=== PATIENT | female | born 1950 | race Caucasian/White ===

== ENCOUNTER 2018-02-28 17:23 | Inpatient (IN) ==
[2018-02-28] MEDS ORDERED: 0.9 % Sodium Chloride 500 ML IVC ONE (18:44)
--- NOTE | 2018-02-28 18:46 | Emergency Department Note ---
Disposition Clinical Impression: Small bowel obstruction, Ventral hernia with bowel obstruction Disposition: Admitted As Inpatient Condition: Fair Referrals: Jad Lang MD [Primary Care Provider] - Forms: ED Satisfaction Letter, Work/School Release Time of Disposition: 19:11 General Adult HPI - General Chief complaint: ED Abdominal Pain Stated complaint: bowel blockage Time Seen by Provider: 02/28/18 18:32 - History of Present Illness Pain Scale: 4 - Related Data Home Medications Medication Instructions Recorded Confirmed Albuterol Sulfate [Albuterol 2 puff IH Q4HR 11/05/15 11/05/15 Inhaler] Aspirin 325 mg PO DAILY 11/05/15 11/05/15 Diclofenac Sodium [Voltaren] 75 mg PO BID 11/05/15 11/05/15 Ferrous Sulfate [Iron Supplement] 325 mg PO DAILY 11/05/15 11/05/15 Lisinopril [Zestril] 5 mg PO DAILY PRN 11/05/15 11/05/15 Meclizine HCl [Verticalm] 25 mg PO BID PRN 11/05/15 11/05/15 Previous Rx's Medication Instructions Recorded Dicyclomine [Bentyl] 10 mg PO QID PRN #20 capsule 11/23/17 Ondansetron HCl [Zofran] 4 mg PO Q6H PRN #10 tablet 11/23/17 Ondansetron ODT [Zofran ODT] 4 mg PO Q6H PRN #6 tab.rapdis 02/28/18 Allergies Allergy/AdvReac Type Severity Reaction Status Date / Time ciprofloxacin [From Cipro] Allergy Muscle Pain Verified 11/05/15 14:55 Sulfa (Sulfonamide Allergy Vomiting Verified 05/16/15 11:45 Antibiotics) Past Medical History - Past Medical History Medical history: Reports: arthritis, asthma, DVT, glaucoma, hypertension Psychiatric history: Reports: no psych history SENIOR PIPING DESIGNER history: Reports: no SENIOR PIPING DESIGNER history - Social History Smoking Status: Never smoker Smokeless Tobacco Status: No Alcohol use: Reports: none Drug use: Reports: none Course Vital Signs Temperature 98.1 F 02/28/18 17:25 Pulse Rate 104 02/28/18 17:25 Respiratory Rate 18 02/28/18 17:25 Blood Pressure 133/83 02/28/18 17:25 O2 Sat by Pulse Oximetry 96 02/28/18 17:25 Temperature 98.1 F 02/28/18 19:03 Pulse Rate 104 02/28/18 19:03 Respiratory Rate 18 02/28/18 19:03 Blood Pressure 133/83 02/28/18 19:03 O2 Sat by Pulse Oximetry 96 02/28/18 19:03 Oxygen Delivery Oxygen Delivery Room Air Medical Decision Making - Lab Data Result diagrams: 02/28/18 18:51 Lab Results 02/28/18 Range/Units 18:51 WBC 13.3 H (4.3-11.1) K/mcL RBC 5.22 H (3.82-4.97) M/mcL Hgb 13.8 (11.5-15.4) g/dL Hct 43.2 (35.3-44.9) % MCV 82.8 L (83.0-100.0) fL MCH 26.4 L (28.0-33.3) pg MCHC 31.9 (31.6-35.5) g/dL RDW 13.8 (11.5-14.5) % Plt Count 279 (140-400) K/mcL MPV 10.3 (9.4-12.4) fL Immature Gran % 0.2 (0-4) % Seg Neutrophils % 81.6 % Lymphocytes % 11.2 % Monocytes % 6.9 % Eosinophils % 0.0 % Basophils % 0.1 % Neutrophils # 10.9 H (1.6-8.9) K/mcL Lymphocytes # 1.5 (0.6-4.6) K/mcL Monocytes # 0.9 (0.0-1.3) K/mcL Eosinophils # 0.0 (0.0-0.6) K/mcL Basophils # 0.0 (0.0-0.2) K/mcL Attestation Statement - Attestation Attestation: I examined this patient and my medical decision-making was reviewed with the Resident Physician. I agree with the documented findings, disposition and treatment plan as described except to the extent set forth below. Patient presents to the ED with a chief complaint of a bowel obstruction. Patient was seen and [facility] this morning and wanted to go home. She had 2 incarcerated hernias a small bowel obstruction. Patient has a history of multiple abdominal surgeries. On examination she has a midline scar of her abdomen. Several areas with straw-colored serous drainage. She has a soft hernia anteriorly and a palpable hernia inferiorly that is firm and nonreducible. Plan. Patient was discussed with Dr. Boswell who will admit the patient. We will recheck some labs and place an NG tube. Patient accepted. Signed out to ammunition assembly laborer pending her transfer to the floor.
[2018-02-28 19:01] LABS: Basophils % 0.1 %; Hematocrit 43.2 % (35.3-44.9); Hemoglobin 13.8 g/dL (11.5-15.4); Immature Granulocytes % 0.2 % (0-4); Lymphocytes # 1.5 K/mcL (0.6-4.6); Lymphocytes % 11.2 %; Mean Corpuscular HGB Conc 31.9 g/dL (31.6-35.5); Mean Corpuscular Hemoglobin 26.4 pg (28.0-33.3); Mean Corpuscular Volume 82.8 fL (83.0-100.0); Mean Platelet Volume 10.3 fL (9.4-12.4); Monocytes # 0.9 K/mcL (0.0-1.3); Monocytes % 6.9 %; Neutrophils # 10.9 K/mcL (1.6-8.9); Platelet Count 279 K/mcL (140-400); Red Blood Count 5.22 M/mcL (3.82-4.97); Red Cell Distribution Width 13.8 % (11.5-14.5); Segmented Neutrophils % 81.6 %
--- NOTE | 2018-02-28 19:08 | Emergency Department Note ---
Disposition Clinical Impression: Small bowel obstruction Disposition: Admitted As Inpatient Condition: Fair Referrals: Jad Lang MD [Primary Care Provider] - Forms: ED Satisfaction Letter, Work/School Release General Adult HPI - General Chief complaint: ED Abdominal Pain Stated complaint: bowel blockage Time Seen by Provider: 02/28/18 18:32 Source: patient, family Mode of arrival: ambulatory Limitations: no limitations Nursing Notes Reviewed: Yes Vital Signs Reviewed: Yes - History of Present Illness HPI Narrative: 67-year-old female presenting with small bowel obstruction. Patient states she was seen at an outside facility today and diagnosis small bowel obstruction. They suggested she come to our emergency department for admission and further evaluation but patient went home to rest instead. Patient still vomiting with last episode of nonbloody nonbilious emesis approximately an hour and a half ago. Patient states she has had multiple abdominal hernia repairs from Dr. Salgado and Dr. Montes. Patient denies any fevers at home but does disclose abdominal pain, nausea, vomiting. Pain Scale: 4 - Related Data Home Medications Medication Instructions Recorded Confirmed Albuterol Sulfate [Albuterol 2 puff IH Q4HR 11/05/15 11/05/15 Inhaler] Aspirin 325 mg PO DAILY 11/05/15 11/05/15 Diclofenac Sodium [Voltaren] 75 mg PO BID 11/05/15 11/05/15 Ferrous Sulfate [Iron Supplement] 325 mg PO DAILY 11/05/15 11/05/15 Lisinopril [Zestril] 5 mg PO DAILY PRN 11/05/15 11/05/15 Meclizine HCl [Verticalm] 25 mg PO BID PRN 11/05/15 11/05/15 Previous Rx's Medication Instructions Recorded Dicyclomine [Bentyl] 10 mg PO QID PRN #20 capsule 11/23/17 Ondansetron HCl [Zofran] 4 mg PO Q6H PRN #10 tablet 11/23/17 Ondansetron ODT [Zofran ODT] 4 mg PO Q6H PRN #6 tab.rapdis 02/28/18 Allergies Allergy/AdvReac Type Severity Reaction Status Date / Time ciprofloxacin [From Cipro] Allergy Muscle Pain Verified 11/05/15 14:55 Sulfa (Sulfonamide Allergy Vomiting Verified 05/16/15 11:45 Antibiotics) All systems ED: reviewed and negative except as stated. Constitutional: Denies: fever, chills Eyes: Reports: as per HPI ENT ED: Reports: as per HPI Cardiovascular: Denies: chest pain, palpitations Respiratory: Denies: cough, dyspnea, wheezes Gastrointestinal: Reports: abdominal pain, nausea, vomiting Genitourinary: Reports: as per HPI Musculoskeletal: Reports: as per HPI Integumentary: Reports: as per HPI Neurological: Denies: weakness, numbness, paresthesias Psychiatric: Reports: as per HPI Endocrine: Reports: as per HPI Hematological/Lymphatic: Reports: as per HPI Allergic/Immunologic: Reports: as per HPI Past Medical History - Past Medical History Attestation: Yes The following information was validated with the patient. Medical history: Reports: arthritis, asthma, DVT, glaucoma, hypertension Psychiatric history: Reports: no psych history PARKING METER COLLECTOR history: Reports: no PARKING METER COLLECTOR history - Social History Smoking Status: Never smoker Smokeless Tobacco Status: No Alcohol use: Reports: none Drug use: Reports: none Physical Exam - General Limitations: no limitations General appearance: alert, in no apparent distress - Head Head exam: atraumatic, normocephalic, normal inspection - Eye Eye exam: Present: normal appearance. Absent: scleral icterus, conjunctival injection - ENT ENT exam: mucous membranes dry - Neck Neck exam: Present: normal inspection, full ROM. Absent: tenderness, meningismus - Chest Chest inspection: Present: normal inspection, symmetric chest wall rise. Absent : tenderness, rash - Respiratory Respiratory exam: Present: normal lung sounds bilaterally. Absent: respiratory distress, wheezes - Cardiovascular Cardiovascular exam: Present: normal rhythm, tachycardia, normal heart sounds - Abdominal Exam Abdominal exam: Present: tenderness, hernia (Ventral hernia noted that is able to be reduced. Midline vertical scar with serous drainage from the base. Large , nonreducible, hard hernia noted in the suprapubic region.) Abdominal tenderness: Present: diffuse, severe - Extremities Exam Extremities exam: Present: normal inspection, full ROM - Neurological Exam Neurological exam: Present: alert, oriented X3 - Psychiatric Psychiatric exam: Present: normal affect, normal mood - Skin Skin exam: Present: warm, intact Course Course Narrative: 67-year-old female presenting with hernia with strangulation. Patient was seen outside facility and left. CT there showed the following 1. Findings are consistent with an acute distal small bowel obstruction secondary to incarcerated lower ventral hernia along the anterior pelvic wall which contains loops of mid and distal small bowel and a small bowel feces sign just proximal to the hernia sac. There is no evidence of pneumatosis, perforation, or free air. 2. Second additional ventral abdominal hernia just right of midline contains loops of small bowel and colon, though no evidence of incarceration or associated obstruction. Patient had mild leukocytosis but otherwise labs benign. Patient arrived and states she is still having vomiting. Last episode of vomiting was proximally an hour and a half ago. On exam patient does have large, non-reducible, hard hernia noted above the suprapubic region. I spoke with the surgeon on-call Dr. Huff who agrees to accept the patient to his service. He would like us to place an NG tube and provide the patient with fluid hydration. I spoke with the patient who is currently refusing the NG tube. She remains alert and oriented 3 in the room. Hemodynamically stable. We will try to reassure the need for the NG tube and plan to admit the patient at this time. Vital Signs Temperature 98.1 F 02/28/18 17:25 Pulse Rate 104 02/28/18 17:25 Respiratory Rate 18 02/28/18 17:25 Blood Pressure 133/83 02/28/18 17:25 O2 Sat by Pulse Oximetry 96 02/28/18 17:25 Temperature 98.1 F 02/28/18 19:03 Pulse Rate 104 02/28/18 19:03 Respiratory Rate 18 02/28/18 19:03 Blood Pressure 133/83 02/28/18 19:03 O2 Sat by Pulse Oximetry 96 02/28/18 19:03 Oxygen Delivery Oxygen Delivery Room Air Medical Decision Making - Lab Data Result diagrams: 02/28/18 18:51 Lab Results 02/28/18 Range/Units 18:51 WBC 13.3 H (4.3-11.1) K/mcL RBC 5.22 H (3.82-4.97) M/mcL Hgb 13.8 (11.5-15.4) g/dL Hct 43.2 (35.3-44.9) % MCV 82.8 L (83.0-100.0) fL MCH 26.4 L (28.0-33.3) pg MCHC 31.9 (31.6-35.5) g/dL RDW 13.8 (11.5-14.5) % Plt Count 279 (140-400) K/mcL MPV 10.3 (9.4-12.4) fL Immature Gran % 0.2 (0-4) % Seg Neutrophils % 81.6 % Lymphocytes % 11.2 % Monocytes % 6.9 % Eosinophils % 0.0 % Basophils % 0.1 % Neutrophils # 10.9 H (1.6-8.9) K/mcL Lymphocytes # 1.5 (0.6-4.6) K/mcL Monocytes # 0.9 (0.0-1.3) K/mcL Eosinophils # 0.0 (0.0-0.6) K/mcL Basophils # 0.0 (0.0-0.2) K/mcL
[2018-02-28 19:22] LABS: BUN/Creatinine Ratio 30 (6-26); Blood Urea Nitrogen 21 mg/dL (8-23); Calcium 9.6 mg/dL (8.6-10.3); Carbon Dioxide 26 mEq/L (23-29); Chloride 105 mEq/L (98-107); Glucose 124 mg/dL (70-105); Osmolality,Calculated 290 (280-300); Potassium 3.9 mEq/L (3.5-5.1); Sodium 138 mEq/L (136-145); eGFR For Non-African Americans > 60 (> 60)
[2018-02-28] MEDS: 0.9 % Sodium Chloride 1,000 ML IVC SCH (20:10)
[2018-02-28] MEDS ORDERED: *HR* Metoprolol 5 MG/5 ML VIAL IVP PRN (20:51)
[2018-02-28] MEDS ORDERED: OXYCODONE Oral CONC 10 MG/0.5 ML ORAL.SYG SL PRN (21:21)
[2018-02-28] MEDS ORDERED: OXYCODONE Oral CONC 10 MG/0.5 ML ORAL.SYG SL SCH (21:30)
[2018-02-28] MEDS: D5% in 0.45% NACL w KCl 20 MEQ/1,000 ML MLS IVC SCH (22:11)
[2018-02-28] MEDS: Ondansetron 4 MG/2 ML VIAL IVP PRN (22:42)
[2018-03-01] MEDS: Ondansetron 4 MG/2 ML VIAL IVP PRN (05:32)
[2018-03-01] MEDS: D5% in 0.45% NACL w KCl 20 MEQ/1,000 ML MLS IVC SCH (05:32)
[2018-03-01 06:36] LABS: Basophils % 0.1 %; Hematocrit 39.5 % (35.3-44.9); Hemoglobin 12.4 g/dL (11.5-15.4); Immature Granulocytes % 0.3 % (0-4); Lymphocytes # 1.3 K/mcL (0.6-4.6); Mean Corpuscular HGB Conc 31.4 g/dL (31.6-35.5); Mean Corpuscular Hemoglobin 26.2 pg (28.0-33.3); Mean Corpuscular Volume 83.5 fL (83.0-100.0); Mean Platelet Volume 10.3 fL (9.4-12.4); Monocytes # 0.7 K/mcL (0.0-1.3); Monocytes % 7.4 %; Neutrophils # 7.9 K/mcL (1.6-8.9); Platelet Count 252 K/mcL (140-400); Red Blood Count 4.73 M/mcL (3.82-4.97); Red Cell Distribution Width 13.8 % (11.5-14.5); Segmented Neutrophils % 79.2 %
[2018-03-01 06:57] LABS: BUN/Creatinine Ratio 31 (6-26); Blood Urea Nitrogen 19 mg/dL (8-23); Calcium 8.7 mg/dL (8.6-10.3); Carbon Dioxide 27 mEq/L (23-29); Chloride 106 mEq/L (98-107); Glucose 142 mg/dL (70-105); Osmolality,Calculated 289 (280-300); Potassium 4.1 mEq/L (3.5-5.1); Sodium 137 mEq/L (136-145); eGFR For Non-African Americans > 60 (> 60)
[2018-03-01] MEDS ORDERED: Naloxone 0.4 MG/ML INJ IVP PRN (08:22)
--- NOTE | 2018-03-01 08:22 | General Surg History&Physical ---
<Lisbet Richardson - Last Filed: 03/01/18 14:10> Date of Encounter: 03/01/18 Time of Encounter: 08:22 Assessment and Plan (1) Ventral hernia with bowel obstruction Current Visit: Yes Status: Acute The assessment and plan as outlined above was discussed with the patient and/or family members who expressed understanding and agreement. All questions were answered. -Patient currently refusing NG tube placement - npo - start zosyn Anticipate she will need surgical intervention for removal of mesh & reconstruction with debridement of chronic wound and possible wound vac placement. (2) Nonhealing surgical wound Current Visit: Yes Status: Chronic see above Qualifiers: Encounter type: initial encounter Qualified Code(s): T81.89XA - Other complications of procedures, not elsewhere classified, initial encounter (3) Atrial fibrillation, new onset Current Visit: Yes Status: Suspected unclear out patient diagnosis of atrial fibrillation in the past but strongly suspect based on exam and symptoms. Risks of anti coag may outweigh benefits given bleeding history. - stat EKG was delayed- showed sinus rhythm - cardiac monitoring - consider another EKG to confirm when tele indicated - consult Hospitalist service for this and multiple poorly controlled or undiagnosed chronic medical conditions as listed below. (4) Hyperglycemia Current Visit: Yes Status: Acute Random glucose of 142 and 124 with non-healing ulcer- concern from undiagnosed DM - H A1c (5) Hypertension Current Visit: Yes Status: Chronic Unknown control at home and non compliant with lisinopril - continue IV metropolol prn SBP over 160 Qualifiers: Hypertension type: essential hypertension Qualified Code(s): I10 - Essential (primary) hypertension (6) Asthma Current Visit: Yes Status: Chronic Well controlled at home - albuterol treatment PRN Qualifiers: Asthma severity: mild Asthma persistence: intermittent Asthma complication type: uncomplicated Qualified Code(s): J45.20 - Mild intermittent asthma, uncomplicated (7) History of DVT (deep vein thrombosis) Current Visit: Yes Status: Acute Distant history of DVT with bleeding when anti coagulated - SCDs as DVT prophylaxis (8) Vertigo Current Visit: Yes Status: Chronic Episodic vertigo, previously diagnosied but unknown by patient - 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 Aguayo is a 67 year old female hx HTN presented to [facility] ED for 2 days of vomiting and epigastric abdominal pain. Describes achy pain first triggered by eating pizza and has not been able to tolerate food for a day. Also burning pain with excessive burping of esteban taste. Several episodes of vomiting once with brown coloring and black flakes. Her last bowel movement was 2 days ago and normal coloring with out pain. She admits to chills, sweats, and fatigue. IN [facility] ED, abdominal CT showed SBO secondary to incarcerated lower ventral hernia. She refused transfer but later presented to [facility] ER after increased bilious vomiting that improved with zofran- last vomited noon on Friday. . Dr Huff was paged late on 02-28 and accepted admission. She has history of ventral hernia after hysterectomy leading several abdominal surgeries in attempt to repair the first completed by Dr Verduzco. Her last surgery around [address] Montes she refused mesh removal. Thus resulting in non healing abdominal wound that constantly seeps clear fluid but occasional blisters then bleeds. She once followed with wound clinic but stopped. She was previously told by a doctor she had irregular heartbeat but later told that there was nothing wrong and didn't need medications. Sje periodically has palpations, weakness and lightheaded - patient is poor historian regarding distant events and did not provide more detail. She has previous DVT after surgery but when anti-coagulated experienced increased bleeding and required transfusion. At some point she was seen in another ER for vertigo told it was "in her ears" and given mecilizine but no formal diagnosis recalled. Never smoker denies EtOH or illicit drug use. She is noncompliant with treatment with lisinopril for HTN but takes a 81 mg asa daily. Past Med Surg Social Fam HX - Past Medical History Medical history: arthritis, asthma, DVT, glaucoma, hypertension Psychiatric history: no psych history - Past Surgical History Surgical History: hysterectomy Additional surgical history: DEBRIDEMENT OF ABDOMINAL WOUND - Social History Smoking Status: Never smoker Smokeless Tobacco Status: No Alcohol use: none Drug use: none - Family History Daughter History Unknown: Yes Hx Family Medical Disorders: Yes (IBS) Medications and Allergies Aspirin 325 mg PO DAILY 11/05/15 [History] 3 Allergy/AdvReac Type Severity Reaction Status Date / Time ciprofloxacin [From Cipro] Allergy Muscle Pain Verified 11/05/15 14:55 Sulfa (Sulfonamide Allergy Vomiting Verified 05/16/15 11:45 Antibiotics) Review of Systems All systems PM: The remainder of the systems were reviewed and are negative - Constitutional chills, fatigue, malaise, weakness - EENT Nose, mouth and throat: dizziness, nasal congestion, nasal discharge, vertigo - Cardiovascular lightheadedness, palpitations, no chest pain, no edema, no syncope - Respiratory cough, dyspnea on exertion - Gastrointestinal abdominal pain, nausea, vomiting, no constipation, no diarrhea, no melena - Genitourinary Genitourinary: urinary incontinence, no dysuria, no urinary frequency - Musculoskeletal arthralgias, back pain, muscle weakness - Neurological disequilibrium, dizziness, memory loss, vertigo General Surgery Exam Initial Vital Signs Temp Pulse Resp BP Pulse Ox 98.1 F 104 18 133/83 96 02/28/18 17:25 02/28/18 17:25 02/28/18 17:25 02/28/18 17:25 02/28/18 17:25 - General physical appearance moderate distress, moderate pain, obese - Eyes normal ocular movement - Respiratory normal expansion, normal respiratory effort crackles: bilateral - Cardiovascular Cardiovascular exam: Present: tachycardia, irregular rhythm - Abdomen Abdomen general surgery: Present: bowel sounds present, soft, non tender, surgical scars, wound. Absent: tender, rebound Hernia: Present: reducible, epigastric - Incision Incision: Present: draining, red, erythema, approximated - Integumentary Integumentary general surgery: Present: warm and dry, no abnormal pigmentation. Absent: diaphoresis - Neurologic Present: normal coordination, normal sensation - Musculoskeletal Present: normal posture. Absent: normal gait - Psychiatric Psychiatric general surgery: Present: A&Ox3, speech is normal (poor historian espically of distant events who struggles to make descisions). Absent: memory intact, aggessive, tearful Results - Labs 03/01/18 06:12 03/01/18 06:12 Abnormal lab results MCH 26.2 pg (28.0-33.3) L 03/01/18 06:12 MCHC 31.4 g/dL (31.6-35.5) L 03/01/18 06:12 BUN/Creatinine Ratio 31 (6-26) H 03/01/18 06:12 Glucose 142 mg/dL (70-105) H 03/01/18 06:12 Diabetes panel 03/01/18 Range/Units 06:12 Sodium 137 (136-145) mEq/L Potassium 4.1 (3.5-5.1) mEq/L Chloride 106 (98-107) mEq/L Carbon Dioxide 27 (23-29) mEq/L BUN 19 (8-23) mg/dL Creatinine 0.62 (0.60-1.20) mg/dL Glucose 142 H (70-105) mg/dL Calcium 8.7 (8.6-10.3) mg/dL Calcium panel 03/01/18 Range/Units 06:12 Calcium 8.7 (8.6-10.3) mg/dL Pituitary panel 03/01/18 Range/Units 06:12 Sodium 137 (136-145) mEq/L Potassium 4.1 (3.5-5.1) mEq/L Chloride 106 (98-107) mEq/L Carbon Dioxide 27 (23-29) mEq/L BUN 19 (8-23) mg/dL Creatinine 0.62 (0.60-1.20) mg/dL Glucose 142 H (70-105) mg/dL Calcium 8.7 (8.6-10.3) mg/dL Adrenal panel 03/01/18 Range/Units 06:12 Sodium 137 (136-145) mEq/L Potassium 4.1 (3.5-5.1) mEq/L Chloride 106 (98-107) mEq/L Carbon Dioxide 27 (23-29) mEq/L BUN 19 (8-23) mg/dL Creatinine 0.62 (0.60-1.20) mg/dL Glucose 142 H (70-105) mg/dL Calcium 8.7 (8.6-10.3) mg/dL All other labs normal. <Jaime Huff - Last Filed: 03/01/18 17:58> Date of Encounter: 03/01/18 History of Present Illness HPI: Ms. Aguayo is a 67 year old female Review of Systems All systems PM: The remainder of the systems were reviewed and are negative General Surgery Exam Initial Vital Signs Temp Pulse Resp BP Pulse Ox 98.1 F 104 18 133/83 96 02/28/18 17:25 02/28/18 17:25 02/28/18 17:25 02/28/18 17:25 02/28/18 17:25 Results - Labs 03/01/18 06:12 03/01/18 06:12 Abnormal lab results MCH 26.2 pg (28.0-33.3) L 03/01/18 06:12 MCHC 31.4 g/dL (31.6-35.5) L 03/01/18 06:12 BUN/Creatinine Ratio 31 (6-26) H 03/01/18 06:12 Glucose 142 mg/dL (70-105) H 03/01/18 06:12 Diabetes panel 03/01/18 Range/Units 06:12 Sodium 137 (136-145) mEq/L Potassium 4.1 (3.5-5.1) mEq/L Chloride 106 (98-107) mEq/L Carbon Dioxide 27 (23-29) mEq/L BUN 19 (8-23) mg/dL Creatinine 0.62 (0.60-1.20) mg/dL Glucose 142 H (70-105) mg/dL Calcium 8.7 (8.6-10.3) mg/dL Thyroid panel 03/01/18 Range/Units 06:12 TSH 1.952 (0.340-5.600) mcIU/mL Calcium panel 03/01/18 Range/Units 06:12 Calcium 8.7 (8.6-10.3) mg/dL Pituitary panel 03/01/18 Range/Units 06:12 Sodium 137 (136-145) mEq/L Potassium 4.1 (3.5-5.1) mEq/L Chloride 106 (98-107) mEq/L Carbon Dioxide 27 (23-29) mEq/L BUN 19 (8-23) mg/dL Creatinine 0.62 (0.60-1.20) mg/dL Glucose 142 H (70-105) mg/dL Calcium 8.7 (8.6-10.3) mg/dL TSH 1.952 (0.340-5.600) mcIU/mL Adrenal panel 03/01/18 Range/Units 06:12 Sodium 137 (136-145) mEq/L Potassium 4.1 (3.5-5.1) mEq/L Chloride 106 (98-107) mEq/L Carbon Dioxide 27 (23-29) mEq/L BUN 19 (8-23) mg/dL Creatinine 0.62 (0.60-1.20) mg/dL Glucose 142 H (70-105) mg/dL Calcium 8.7 (8.6-10.3) mg/dL All other labs normal. - Attending Attestation I examined this patient and my medical decision-making was reviewed with the Resident Physician. I agree with the documented findings, disposition and treatment plan as described except to the extent set forth below. The patient is seen and evaluated on morning rounds with resident and the medical student. 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 CAT scan demonstrates a complex incisional hernia with at least 2 fascial openings. A transition point is noted in one of the hernia sacs. She has been offered exploratory laparotomy and removal of mesh in the past. I offered exploratory laparotomy and removal of mesh. She would like to wait and see how she does. The lower abdominal midline wound will not heal without mesh removal. I will discuss her case with Dr. Montes and Dr. Verduzco. Jaime Huff MD FACS
[2018-03-01] MEDS ORDERED: Albuterol 2.5 MG/3 ML NEBULIZER IH PRN (08:44)
[2018-03-01 09:11] LABS: INR 1.1; Prothrombin Time 12.1 Seconds (9.4-12.1)
[2018-03-01] MEDS: 0.9 % Sodium Chloride 1,000 ML IVC SCH ×2 (12:24→20:39)
[2018-03-01] MEDS: Piperacillin/Tazobactam 3.375 GM in 0.9 % Sodium Chloride Mini Bag 100 ML IVPB SCH ×2 (12:25→20:40)
--- NOTE | 2018-03-01 15:15 | Internal Medicine Consult Note ---
Date of Encounter: 03/01/18 Time of Encounter: 13:00 - Assessment and plan (1) Sinus tachycardia Current Visit: Yes Status: Acute Assessment and plan: Patient with heart rate of 104 on admission but has been between 75 to 90 since. EKG this morning showed sinus rhythm. Cardiovascular exam also revealed that patient was in regular rate and rhythm Recommendations to continue to monitor patient on telemetry TSH and Echocardiogram ordered which are pending. (2) Vertigo Current Visit: Yes Status: Chronic Assessment and plan: Patient reports a history of intermittent dizziness and has been diagnosed with BPPV. She is managed with meclizine as needed as an outpatient. Patient currently asymptomatic but agree with her taking meclizine as needed (3) Hypertension Current Visit: Yes Status: Chronic Assessment and plan: Patient does report a history of hypertension management but discontinued medication due to side effects. Patient's blood pressure since admission has been within normal limits. No recommendations to start on oral scheduled antihypertensive at this time but to continue to monitor Qualifiers: Hypertension type: essential hypertension Qualified Code(s): I10 - Essential (primary) hypertension (4) History of DVT (deep vein thrombosis) Current Visit: Yes Status: Acute Assessment and plan: Patient reports a history of DVT but appeared to have been provoked by prior surgery years ago. Agree with continuing SCDs for DVT prophylaxis. (5) Asthma Current Visit: Yes Status: Chronic Assessment and plan: Patient not in exacerbation; albuterol as needed Qualifiers: Asthma severity: mild Asthma persistence: intermittent Asthma complication type: uncomplicated Qualified Code(s): J45.20 - Mild intermittent asthma, uncomplicated (6) Ventral hernia with bowel obstruction Current Visit: Yes Status: Acute Assessment and plan: Patient presented to the ER on 02/28/18 due to abdominal pain and nausea/vomiting , who was found to have a distal small bowel obstruction secondary to incarcerated lower ventral hernia on imaging. Management per general surgery (7) DVT prophylaxis Current Visit: Yes Status: Acute - Time Spent With Patient Total time spent is greater than 50% in coordination of care (as documented) at patient's floor/unit and/or counseling patient: Internal Medicine - CN: HPI - Data of Consult Consult date: 03/01/18 Requesting Physician: Jaime Huff MD - Consult Narrative Reason for consult: Concerns for atrial fibrillation History of present illness: Patient is a 67-year-old female with past medical history significant for DVT, hypertension, asthma and BPPV who presented to the ER on 02/28/18 due to abdominal pain and nausea/vomiting, who was found to have a distal small bowel obstruction secondary to incarcerated lower ventral hernia on imaging. She was admitted to general surgery service for management. Hospitalist service was consulted due to concerns for possible atrial fibrillation. Patient reports that several years ago she heard the term atrial fibrillation mentioned to her, during hospitalization while being evaluated for a blood clot. She reports that she was on Coumadin for a short time and was discontinued; presuming that a recent surgery prior to DVT was probable cause. Patient also reports of being on aspirin daily. In addition, patient also states that she had been on blood pressure medications in the past for hypertension but discontinued them due to side effects. Furthermore, patient also reports of chronic history of intermittent dizziness and was diagnosed with BPPV and takes meclizine as needed. Past Med Surg Social Fam HX - Past Medical History Medical history: arthritis, asthma, DVT, glaucoma, hypertension Psychiatric history: no psych history - Past Surgical History Surgical History: hysterectomy Additional surgical history: DEBRIDEMENT OF ABDOMINAL WOUND - Social History Smoking Status: Never smoker Smokeless Tobacco Status: No Alcohol use: none Drug use: none - Family History Daughter History Unknown: Yes Hx Family Medical Disorders: Yes (IBS) Internal Medicine - CN: Meds Aspirin 325 mg PO DAILY 11/05/15 [History] 3 Allergy/AdvReac Type Severity Reaction Status Date / Time ciprofloxacin [From Cipro] Allergy Muscle Pain Verified 11/05/15 14:55 Sulfa (Sulfonamide Allergy Vomiting Verified 05/16/15 11:45 Antibiotics) Hospitalist - CN: Exam - Constitutional Vitals: Temp Pulse Resp BP Pulse Ox 97.6 F 84 16 120/75 97 03/01/18 14:41 03/01/18 14:41 03/01/18 14:41 03/01/18 14:41 03/01/18 14:41 General appearance IM: Present: A&O X 3, no acute distress Exam: As above - Head Head exam: Present: normocephalic - Eye Eye exam: Present: normal appearance - ENT ENT exam: Present: mucous membranes moist - Respiratory Respiratory exam: Present: CTAB - Cardiovascular Cardiovascular exam IM: Present: RRR, +S1, +S2. Absent: bradycardia, clicks, diastolic murmur, gallop, irregular rhythm, rubs, systolic murmur, tachycardia - GI/Abdominal GI/Abdominal exam IM: Present: distended, hypoactive bowel sounds, soft - Extremities Exam Extremities exam IM: Absent: pedal edema - Neurological Exam Neurological exam: Present: alert, oriented X3. Absent: altered - Psychiatric Psychiatric exam: Present: normal mood - Skin Skin exam IM: Present: normal color Internal Medicine - CN: Reslt - Labs CBC & Chem 7: 03/01/18 06:12 03/01/18 06:12 Labs: Short CBC 03/01/18 Range/Units 06:12 WBC 10.0 (4.3-11.1) K/mcL Hgb 12.4 (11.5-15.4) g/dL Hct 39.5 (35.3-44.9) % Plt Count 252 (140-400) K/mcL Neutrophils # 7.9 (1.6-8.9) K/mcL BMP 03/01/18 06:12 Sodium 137 Potassium 4.1 Chloride 106 Carbon Dioxide 27 BUN 19 Creatinine 0.62 Glucose 142 H Calcium 8.7 - ABG Interpretation ABG results: PT/INR, D-dimer PT 12.1 Seconds (9.4-12.1) 03/01/18 08:37 Consult Discharge Plan - Plan Referrals: Jad Lang MD [Primary Care Provider] -
[2018-03-01 17:53] LABS: Thyroid Stimulating Hormone 1.952 mcIU/mL (0.340-5.600)
[2018-03-02] MEDS: Piperacillin/Tazobactam 3.375 GM in 0.9 % Sodium Chloride Mini Bag 100 ML IVPB SCH ×3 (05:48→21:44)
[2018-03-02] MEDS: 0.9 % Sodium Chloride 1,000 ML IVC SCH ×3 (05:49→16:22)
[2018-03-02 06:29] LABS: Basophils % 0.3 %; Eosinophils # 0.2 K/mcL (0.0-0.6); Eosinophils % 2.8 %; Hematocrit 37.1 % (35.3-44.9); Hemoglobin 11.4 g/dL (11.5-15.4); Immature Granulocytes % 0.2 % (0-4); Lymphocytes # 1.7 K/mcL (0.6-4.6); Lymphocytes % 29.6 %; Mean Corpuscular HGB Conc 30.7 g/dL (31.6-35.5); Mean Corpuscular Hemoglobin 26.3 pg (28.0-33.3); Mean Corpuscular Volume 85.5 fL (83.0-100.0); Mean Platelet Volume 10.4 fL (9.4-12.4); Monocytes # 0.6 K/mcL (0.0-1.3); Monocytes % 11.1 %; Neutrophils # 3.2 K/mcL (1.6-8.9); Platelet Count 227 K/mcL (140-400); Red Blood Count 4.34 M/mcL (3.82-4.97); Red Cell Distribution Width 13.8 % (11.5-14.5)
[2018-03-02 07:04] LABS: BUN/Creatinine Ratio 18 (6-26); Blood Urea Nitrogen 13 mg/dL (8-23); Calcium 8.4 mg/dL (8.6-10.3); Carbon Dioxide 24 mEq/L (23-29); Chloride 111 mEq/L (98-107); Chol/HDL Ratio 2.9 (0-4.9); Cholesterol 126 mg/dL (< 200); Glucose 84 mg/dL (70-105); HDL Cholesterol 44 mg/dL (40-59); LDL Cholesterol,Calculated 63 mg/dL (0-99); Osmolality,Calculated 293 (280-300); Potassium 3.5 mEq/L (3.5-5.1); Sodium 142 mEq/L (136-145); Triglycerides 95 mg/dL (< 150); eGFR For Non-African Americans > 60 (> 60)
[2018-03-02 08:16] LABS: Estimated Average Glucose 117 mg/dl; Hemoglobin A1C 5.7 %
--- NOTE | 2018-03-02 08:57 | General Surgery Progress Note ---
<Lisbet Richardson - Last Filed: 03/02/18 09:05> Date of Encounter: 03/02/18 Time of Encounter: 08:53 - Assessment and Plan (1) Ventral hernia with bowel obstruction Current Visit: Yes Status: Acute SBO with incarceration of lower ventral hernia - IVF NS 125 - continue NPO - continue zosyn Patient would benefit from NG placement but refused. Dr Huff will discuss case and possible surgical intervention with Dr Montes today as he preformed previous surgery. May need reconstruction after removal of mesh with wound vac. (2) Nonhealing surgical wound Current Visit: Yes Status: Chronic see above - daily wound care Qualifiers: Encounter type: initial encounter Qualified Code(s): T81.89XA - Other complications of procedures, not elsewhere classified, initial encounter (3) Atrial fibrillation, new onset Current Visit: Yes Status: Suspected Again transiently irregular irregular on exam but normal rate - continue tele and attempt to capture on EKG - TSH 1.9 - appreciate hospitalist's recommendations for echo (4) Hyperglycemia Current Visit: Yes Status: Acute A1C 5.7 borderline prediabetic - no intervention at this time but continue to monitor (5) Hypertension Current Visit: Yes Status: Chronic continue Lopressor IV prn SBP > 160 Qualifiers: Hypertension type: essential hypertension Qualified Code(s): I10 - Essential (primary) hypertension (6) History of DVT (deep vein thrombosis) Current Visit: Yes Status: Acute With history of bleeding when anti coagulated - scds and ambulate for prophylaxis Subjective Patient reports: feels better (No vomiting; patient is requesting food but explained that will make nausea worse.), bowel movement, nausea, afebrile Objective Vital Signs - Last 8 Hours Temp Pulse Resp BP Pulse Ox 03/02/18 06:50 98.0 F 75 14 124/68 100 03/02/18 03:07 97.7 F 66 14 144/78 98 Intake and Output 03/01/18 03/02/18 03/02/18 23:59 07:59 15:59 Intake Total 1100 / 1100 1100 / 1100 Output Total 400 / 400 600 / 600 Balance 700 / 700 500 / 500 Intake: IV Fluids 1100 / 1100 1100 / 1100 0.9 % Sodium Chloride 1,000 ML 1000 / 1000 1000 / 1000 @ 125 mls/hr IVC .Q8H KT Rx#: [id number] Zosyn 3.375 GM In 0.9 % Sodium 100 / 100 100 / 100 Chloride (Mini-Bag +) 100 ML @ 25 mls/hr IVPB Q8H [facility] Rx#: [id number] Oral 0 / 0 0 / 0 Output: Urine 400 / 400 600 / 600 Other: Meal NPO DINNER # Bowel Movements 0 0 Weight 89 kg Blood Glucose* 88 89 Patient Weight 03/02/18 23:59 Weight 89 kg - General physical appearance well developed, well nourished, obese - Eyes normal ocular movement - ENT normal pinna, normal nares, normal mucosa, no hearing loss - Respiratory normal expansion, normal respiratory effort, clear to auscultation - Cardiovascular Cardiovascular exam: Present: irregular rhythm Addtional Comments: no pedal edema, no erythema - Abdomen Abdomen: Present: soft (decrease bowel sounds), non tender Hernia: reducible (ventral upper), incarcerated (ventral lower) - Incision Incision: Present: draining, inflamed, intact, erythema, approximated. Absent: swollen, purulent - Integumentary no rash, no growths, no abnormal pigmentation - Neurologic normal coordination, disoriented - Musculoskeletal normal gait, normal posture - Psychiatric oriented to time, oriented to person, oriented to place, speech is normal - Labs 03/02/18 06:00 03/02/18 06:00 Diabetes panel 03/01/18 03/02/18 03/02/18 Range/Units 06:12 06:00 06:00 Sodium 137 142 (136-145) mEq/L Potassium 4.1 3.5 (3.5-5.1) mEq/L Chloride 106 111 H (98-107) mEq/L Carbon Dioxide 27 24 (23-29) mEq/L BUN 19 13 (8-23) mg/dL Creatinine 0.62 0.72 (0.60-1.20) mg/dL Glucose 142 H 84 (70-105) mg/dL Hemoglobin A1c 5.7 H ( - 5.6) % Calcium 8.7 8.4 L (8.6-10.3) mg/dL Triglycerides 95 (< 150) mg/dL HDL Cholesterol 44 (40-59) mg/dL Thyroid panel 03/01/18 Range/Units 06:12 TSH 1.952 (0.340-5.600) mcIU/mL Calcium panel 03/01/18 03/02/18 Range/Units 06:12 06:00 Calcium 8.7 8.4 L (8.6-10.3) mg/dL Pituitary panel 03/01/18 03/02/18 Range/Units 06:12 06:00 Sodium 137 142 (136-145) mEq/L Potassium 4.1 3.5 (3.5-5.1) mEq/L Chloride 106 111 H (98-107) mEq/L Carbon Dioxide 27 24 (23-29) mEq/L BUN 19 13 (8-23) mg/dL Creatinine 0.62 0.72 (0.60-1.20) mg/dL Glucose 142 H 84 (70-105) mg/dL Calcium 8.7 8.4 L (8.6-10.3) mg/dL TSH 1.952 (0.340-5.600) mcIU/mL Adrenal panel 03/01/18 03/02/18 Range/Units 06:12 06:00 Sodium 137 142 (136-145) mEq/L Potassium 4.1 3.5 (3.5-5.1) mEq/L Chloride 106 111 H (98-107) mEq/L Carbon Dioxide 27 24 (23-29) mEq/L BUN 19 13 (8-23) mg/dL Creatinine 0.62 0.72 (0.60-1.20) mg/dL Glucose 142 H 84 (70-105) mg/dL Calcium 8.7 8.4 L (8.6-10.3) mg/dL Consult Discharge Plan - Plan Referrals: Jad Lang MD [Primary Care Provider] - <Jaime Huff - Last Filed: 03/02/18 14:39> Date of Encounter: 03/02/18 Objective Vital Signs - Last 8 Hours Temp Pulse Resp BP Pulse Ox 03/02/18 14:00 97.8 F 77 16 139/76 99 03/02/18 10:00 97.9 F 75 16 132/77 98 03/02/18 06:50 98.0 F 75 14 124/68 100 Intake and Output 03/01/18 03/02/18 03/02/18 23:59 07:59 15:59 Intake Total 1100 / 1100 1100 / 1100 100 / 100 Output Total 400 / 400 600 / 600 Balance 700 / 700 500 / 500 100 / 100 Intake: IV Fluids 1100 / 1100 1100 / 1100 100 / 100 0.9 % Sodium Chloride 1,000 ML 1000 / 1000 1000 / 1000 @ 125 mls/hr IVC .Q8H [facility] Rx#: [id number] Zosyn 3.375 GM In 0.9 % Sodium 100 / 100 100 / 100 100 / 100 Chloride (Mini-Bag +) 100 ML @ 25 mls/hr IVPB Q8H [facility] Rx#: [id number] Oral 0 / 0 0 / 0 Output: Urine 400 / 400 600 / 600 Other: Meal NPO DINNER # Bowel Movements 0 0 Weight 89 kg Blood Glucose* 88 89 71 Patient Weight 03/02/18 23:59 Weight 89 kg - Labs 03/02/18 06:00 03/02/18 06:00 Diabetes panel 03/01/18 03/02/18 03/02/18 Range/Units 06:12 06:00 06:00 Sodium 137 142 (136-145) mEq/L Potassium 4.1 3.5 (3.5-5.1) mEq/L Chloride 106 111 H (98-107) mEq/L Carbon Dioxide 27 24 (23-29) mEq/L BUN 19 13 (8-23) mg/dL Creatinine 0.62 0.72 (0.60-1.20) mg/dL Glucose 142 H 84 (70-105) mg/dL Hemoglobin A1c 5.7 H ( - 5.6) % Calcium 8.7 8.4 L (8.6-10.3) mg/dL Triglycerides 95 (< 150) mg/dL HDL Cholesterol 44 (40-59) mg/dL Thyroid panel 03/01/18 Range/Units 06:12 TSH 1.952 (0.340-5.600) mcIU/mL Calcium panel 03/01/18 03/02/18 Range/Units 06:12 06:00 Calcium 8.7 8.4 L (8.6-10.3) mg/dL Pituitary panel 03/01/18 03/02/18 Range/Units 06:12 06:00 Sodium 137 142 (136-145) mEq/L Potassium 4.1 3.5 (3.5-5.1) mEq/L Chloride 106 111 H (98-107) mEq/L Carbon Dioxide 27 24 (23-29) mEq/L BUN 19 13 (8-23) mg/dL Creatinine 0.62 0.72 (0.60-1.20) mg/dL Glucose 142 H 84 (70-105) mg/dL Calcium 8.7 8.4 L (8.6-10.3) mg/dL TSH 1.952 (0.340-5.600) mcIU/mL Adrenal panel 03/01/18 03/02/18 Range/Units 06:12 06:00 Sodium 137 142 (136-145) mEq/L Potassium 4.1 3.5 (3.5-5.1) mEq/L Chloride 106 111 H (98-107) mEq/L Carbon Dioxide 27 24 (23-29) mEq/L BUN 19 13 (8-23) mg/dL Creatinine 0.62 0.72 (0.60-1.20) mg/dL Glucose 142 H 84 (70-105) mg/dL Calcium 8.7 8.4 L (8.6-10.3) mg/dL - Attending Attestation I examined this patient and my medical decision-making was reviewed with the Resident Physician. I agree with the documented findings, disposition and treatment plan as described except to the extent set forth below. The patient is seen and evaluated on morning rounds with the medical student, resident, and clinical nurse practitioner. I have recommended removal of infected mesh and repair of incisional hernia with primary tissue closure followed by negative pressure wound therapy. The patient will consider this and let us know it if she wants to proceed. Jaime Huff MD FACS
--- NOTE | 2018-03-02 10:26 | Internal Med Progress Note ---
Hospitalist Progress Note - Encounter Date of Encounter: 03/02/18 Time of Encounter: 11:00 - Subjective Interval History: Patient normal sinus rhythm this morning and blood pressures within normal limits. - Exam Vitals: Temp Pulse Resp BP Pulse Ox 98.0 F 75 14 124/68 100 03/02/18 06:50 03/02/18 06:50 03/02/18 06:50 03/02/18 06:50 03/02/18 06:50 Exam: Gen.: Nonacute distress, alert and oriented 3 ENT: Mucosal membranes moist Respiratory: Lungs are clear to auscultation bilaterally without any wheezing rhonchi or rales Cardiovascular: Normal S1 and S2 regular rate rhythm no murmurs rubs or gallops Abdomen: Soft, nontender and nondistended with positive bowel sounds Extremities: No lower extremity edema Skin: Normal colore - Assessment and Plan (1) Sinus tachycardia Current Visit: Yes Status: Acute Assessment and Plan: Resolved EKG on 03/01/18 showed sinus rhythm. Recommendations to continue to monitor patient on telemetry TSH within normal limits and Echocardiogram ordered which are pending. Continue to monitor (2) Vertigo Current Visit: Yes Status: Chronic Assessment and Plan: Patient reports a history of intermittent dizziness and has been diagnosed with BPPV. She is managed with meclizine as needed as an outpatient. Patient currently asymptomatic but agree with her taking meclizine as needed (3) Hypertension Current Visit: Yes Status: Chronic Assessment and Plan: Patient does report a history of hypertension management but discontinued medication due to side effects. Patient's blood pressure since admission has been continues to be within normal limits. No recommendations to start on oral scheduled antihypertensive at this time but to continue to monitor (4) History of DVT (deep vein thrombosis) Current Visit: Yes Status: Acute Assessment and Plan: Patient reports a history of DVT but appeared to have been provoked by prior surgery years ago. Agree with continuing SCDs for DVT prophylaxis. (5) Asthma Current Visit: Yes Status: Chronic Assessment and Plan: Patient not in exacerbation; albuterol as needed (6) Ventral hernia with bowel obstruction Current Visit: Yes Status: Acute Assessment and Plan: Patient presented to the ER on 02/28/18 due to abdominal pain and nausea/vomiting , who was found to have a distal small bowel obstruction secondary to incarcerated lower ventral hernia on imaging. Management per general surgery (7) DVT prophylaxis Current Visit: Yes Status: Acute Assessment and Plan: SCDs - Time Spent with Patient Total time spent is greater than 50% in coordination of care (as documented) at patient's floor/unit and/or counseling patient: Internal Medicine: Result - Labs CBC & Chem 7: 03/02/18 06:00 03/02/18 06:00 Labs: Short CBC 03/02/18 Range/Units 06:00 WBC 5.8 (4.3-11.1) K/mcL Hgb 11.4 L (11.5-15.4) g/dL Hct 37.1 (35.3-44.9) % Plt Count 227 (140-400) K/mcL Neutrophils # 3.2 (1.6-8.9) K/mcL BMP 03/01/18 03/02/18 06:12 06:00 Sodium 137 142 Potassium 4.1 3.5 Chloride 106 111 H Carbon Dioxide 27 24 BUN 19 13 Creatinine 0.62 0.72 Glucose 142 H 84 Calcium 8.7 8.4 L - ABG Interpretation ABG results: PT/INR, D-dimer PT 12.1 Seconds (9.4-12.1) 03/01/18 08:37 Consult Discharge Plan - Plan Referrals: Jad Lang MD [Primary Care Provider] - (3) Hypertension Qualifiers: Hypertension type: essential hypertension Qualified Code(s): I10 - Essential (primary) hypertension (5) Asthma Qualifiers: Asthma severity: mild Asthma persistence: intermittent Asthma complication type: uncomplicated Qualified Code(s): J45.20 - Mild intermittent asthma, uncomplicated
--- NOTE | 2018-03-02 15:44 | Electrocardiograph Report ---
[place] [id number] Test Date: 2018-03-01 Pat Name: Marcella Aguayo Department: 115 Room: 3A52 Gender: F [employer]: : [id number] Requested By: Lisbet Richardson Order Number: [id number] Reading MD: Bartolo Antunez Measurements Intervals [place] Rate: 75 P: 57 LA: 170 QRS: 1 QRSD: 78 T: 31 QT: 370 QTc: 398 Interpretive Statements SINUS RHYTHM WITH SINUS ARRHYTHMIA LOW QRS VOLTAGE IN PRECORDIAL LEADS Electronically Signed On 03-02-2018 15:43:11 EDT by Bartolo Antunez
[2018-03-03] MEDS: 0.9 % Sodium Chloride 1,000 ML IVC SCH ×3 (00:19→22:02)
[2018-03-03] MEDS: Piperacillin/Tazobactam 3.375 GM in 0.9 % Sodium Chloride Mini Bag 100 ML IVPB SCH ×3 (06:03→22:00)
[2018-03-03 08:07] LABS: BUN/Creatinine Ratio 16 (6-26); Blood Urea Nitrogen 10 mg/dL (8-23); Calcium 8.4 mg/dL (8.6-10.3); Carbon Dioxide 23 mEq/L (23-29); Chloride 112 mEq/L (98-107); Glucose 87 mg/dL (70-105); Osmolality,Calculated 292 (280-300); Potassium 3.4 mEq/L (3.5-5.1); Sodium 142 mEq/L (136-145); eGFR For Non-African Americans > 60 (> 60)
--- NOTE | 2018-03-03 08:22 | General Surgery Progress Note ---
<Lisbet Richardson - Last Filed: 03/03/18 13:50> Date of Encounter: 03/03/18 Time of Encounter: 08:17 - Assessment and Plan (1) Ventral hernia with bowel obstruction Current Visit: Yes Status: Acute SBO with incarceration of lower ventral hernia - IVF NS 125 - continue fulls, NPO at midnight - continue zosyn Plan for mesh removal and repair of ventral incision hernias with wound vac on Friday with Dr Huff. I discussed the risk inherent to surgery with this patient and she consented. Detailing of past surgical history form old medial records in [facility]; 07-08-07 Ventral hernioplasty with mesh and excision of skin ulcerations for lower midline ventral hernia with 18x28 Permacol mesh 09-11-07 Excision of wound and debridement with Dr Verduzco for a midline wound with stitch abscess requiring wound vac 01-15-[address] Verduzco; hiatal hernia and mild reflux gastritis 04-05-09 Incisional hernia repair with mesh by Dr Verduzco, midline incision lysis of adhesion 20x15 cm mesh placed and sewn in 10-01-11 Myofascial debridement of abdominal wound by Dr Montes for draining opening of 2-3 mm opening incision of approximately 2 cm that was dissected and cauterized then packed. (2) Nonhealing surgical wound Current Visit: Yes Status: Chronic see above - daily wound care Qualifiers: Encounter type: initial encounter Qualified Code(s): T81.89XA - Other complications of procedures, not elsewhere classified, initial encounter (3) Sinus tachycardia Current Visit: Yes Status: Acute Hospitalist medicine consulted and appreciate recommendations to monitor as can not confirm paroxysmal A fib - continue tele (4) COPD (chronic obstructive pulmonary disease) Current Visit: Yes Status: Suspected Unclear history of COPD that has not received treatment - consult RT for pulmonary rehab before surgery tomorrow - duonebs q6 cliff and q4 prn Qualifiers: COPD type: emphysema Emphysema type: unspecified Qualified Code(s): J43.9 - Emphysema, unspecified (5) History of DVT (deep vein thrombosis) Current Visit: Yes Status: Acute With history of bleeding when anti coagulated - scds and ambulate for prophylaxis Subjective Patient reports: feels better, pain is less, tolerating liquids well, flatus, no bowel movement (last BM 2 days ago not charted) Narrative: Patient admits to past diagnosis of emphysema that was never recorded or treated because she didn't want it to affect employment. Admits to chronic chest congestion but no cough or incrased shortness of breath. Never smoker with unclear pathology for COPD. Has used albuterol inhalers in past Objective Vital Signs - Last 8 Hours Temp Pulse Resp BP Pulse Ox 03/03/18 07:30 97.9 F 61 14 126/74 99 03/03/18 03:18 98.1 F 77 14 123/63 98 Intake and Output 03/02/18 03/03/18 03/03/18 23:59 07:59 15:59 Intake Total 500 / 500 1300 / 1300 Output Total 200 / 200 950 / 950 Balance 300 / 300 350 / 350 Intake: IV Fluids 100 / 100 1100 / 1100 0.9 % Sodium Chloride 1,000 ML 1000 / 1000 @ 125 mls/hr IVC .Q8H CLIFF Rx#: [id number] Zosyn 3.375 GM In 0.9 % Sodium 100 / 100 100 / 100 Chloride (Mini-Bag +) 100 ML @ 25 mls/hr IVPB Q8H CLIFF Rx#: [id number] Oral 400 / 400 200 / 200 Output: Urine 200 / 200 950 / 950 Other: Weight 92 kg Patient Weight 03/03/18 23:59 Weight 92 kg - General physical appearance well developed, well nourished, obese - Eyes normal ocular movement - ENT normal pinna, normal nares, normal mucosa - Respiratory normal expansion, normal respiratory effort, clear to percussion - Cardiovascular Cardiovascular exam: Present: RRR, no murmurs/rubs/gallops - Abdomen Abdomen: Present: bowel sounds present, soft, non tender Hernia: incarcerated (ventral hernia) - Incision Incision: Present: draining ( chronic wound unchanged), erythema, approximated. Absent: red, swollen, inflamed, purulent - Integumentary no rash, no growths, no abnormal pigmentation - Neurologic normal coordination, normal sensation - Musculoskeletal normal gait, normal posture - Psychiatric oriented to time, oriented to person, oriented to place, speech is normal, memory intact - Labs 03/03/18 07:15 03/03/18 07:15 Diabetes panel 03/03/18 Range/Units 07:15 Sodium 142 (136-145) mEq/L Potassium 3.4 L (3.5-5.1) mEq/L Chloride 112 H (98-107) mEq/L Carbon Dioxide 23 (23-29) mEq/L BUN 10 (8-23) mg/dL Creatinine 0.63 (0.60-1.20) mg/dL Glucose 87 (70-105) mg/dL Calcium 8.4 L (8.6-10.3) mg/dL Calcium panel 03/03/18 Range/Units 07:15 Calcium 8.4 L (8.6-10.3) mg/dL Pituitary panel 03/03/18 Range/Units 07:15 Sodium 142 (136-145) mEq/L Potassium 3.4 L (3.5-5.1) mEq/L Chloride 112 H (98-107) mEq/L Carbon Dioxide 23 (23-29) mEq/L BUN 10 (8-23) mg/dL Creatinine 0.63 (0.60-1.20) mg/dL Glucose 87 (70-105) mg/dL Calcium 8.4 L (8.6-10.3) mg/dL Adrenal panel 03/03/18 Range/Units 07:15 Sodium 142 (136-145) mEq/L Potassium 3.4 L (3.5-5.1) mEq/L Chloride 112 H (98-107) mEq/L Carbon Dioxide 23 (23-29) mEq/L BUN 10 (8-23) mg/dL Creatinine 0.63 (0.60-1.20) mg/dL Glucose 87 (70-105) mg/dL Calcium 8.4 L (8.6-10.3) mg/dL Consult Discharge Plan - Plan Referrals: Jad Lang MD [Primary Care Provider] - <Jaime Huff - Last Filed: 03/04/18 18:07> Date of Encounter: 03/04/18 Objective Vital Signs - Last 8 Hours Temp Pulse Resp BP Pulse Ox 03/04/18 17:48 97.3 F L 81 14 151/82 96 03/04/18 17:20 98.4 F 89 16 146/76 96 03/04/18 17:09 97.2 F L 79 18 140/67 96 03/04/18 16:59 97.1 F L 83 16 151/80 96 03/04/18 16:49 97.2 F L 84 18 150/77 96 03/04/18 16:39 97.8 F 81 18 151/82 97 03/04/18 16:29 97.8 F 80 18 158/69 98 03/04/18 16:19 97.5 F L 112 18 148/92 95 03/04/18 10:24 98.1 F 67 15 159/78 98 Intake and Output 03/04/18 03/04/18 03/04/18 07:59 15:59 23:59 Intake Total 1100 / 1100 948 / 948 Output Total 1000 / 1000 400 / 400 1100 / 1100 Balance 100 / 100 548 / 548 -1100 / -1100 Intake: IV Fluids 1100 / 1100 948 / 948 0.9 % Sodium Chloride 1,000 ML 1000 / 1000 648 / 648 @ 125 mls/hr IVC .Q8H CLIFF Rx#: [id number] Zosyn 3.375 GM In 0.9 % Sodium 100 / 100 100 / 100 Chloride (Mini-Bag +) 100 ML @ 25 mls/hr IVPB Q8H CLIFF Rx#: [id number] Potassium Chloride 10 mEq/100mL 200 / 200 10 meq In 100 ml @ 100 mls/hr IVPB Q1H CLIFF Rx#:[id number] Oral 0 / 0 Output: Urine 1000 / 1000 400 / 400 300 / 300 Estimated Blood Loss 100 / 100 Urine Amount (Catheter) 700 / 700 Other: Meal NPO # Bowel Movements 1 Weight 92.6 kg Blood Glucose* 86 83 Patient Weight 03/04/18 23:59 Weight 92.6 kg - Labs 03/04/18 05:50 03/04/18 05:50 Diabetes panel 03/04/18 Range/Units 05:50 Sodium 143 (136-145) mEq/L Potassium 3.3 L (3.5-5.1) mEq/L Chloride 111 H (98-107) mEq/L Carbon Dioxide 24 (23-29) mEq/L BUN 7 L (8-23) mg/dL Creatinine 0.67 (0.60-1.20) mg/dL Glucose 90 (70-105) mg/dL Calcium 8.7 (8.6-10.3) mg/dL Calcium panel 03/04/18 Range/Units 05:50 Calcium 8.7 (8.6-10.3) mg/dL Pituitary panel 03/04/18 Range/Units 05:50 Sodium 143 (136-145) mEq/L Potassium 3.3 L (3.5-5.1) mEq/L Chloride 111 H (98-107) mEq/L Carbon Dioxide 24 (23-29) mEq/L BUN 7 L (8-23) mg/dL Creatinine 0.67 (0.60-1.20) mg/dL Glucose 90 (70-105) mg/dL Calcium 8.7 (8.6-10.3) mg/dL Adrenal panel 03/04/18 Range/Units 05:50 Sodium 143 (136-145) mEq/L Potassium 3.3 L (3.5-5.1) mEq/L Chloride 111 H (98-107) mEq/L Carbon Dioxide 24 (23-29) mEq/L BUN 7 L (8-23) mg/dL Creatinine 0.67 (0.60-1.20) mg/dL Glucose 90 (70-105) mg/dL Calcium 8.7 (8.6-10.3) mg/dL - Attending Attestation I examined this patient and my medical decision-making was reviewed with the Resident Physician. I agree with the documented findings, disposition and treatment plan as described except to the extent set forth below. The patient is seen and evaluated on morning rounds with the resident, and medical student. The patient has had several days of antibiotics and is ready for surgical exploration with removal of mesh and repair of incisional hernia. We will proceed later today. Jaime Huff MD FACS
[2018-03-03 08:23] LABS: Basophils % 0.5 %; Eosinophils # 0.1 K/mcL (0.0-0.6); Eosinophils % 1.7 %; Hematocrit 32.8 % (35.3-44.9); Hemoglobin 10.5 g/dL (11.5-15.4); Immature Granulocytes % 0.2 % (0-4); Lymphocytes # 1.3 K/mcL (0.6-4.6); Lymphocytes % 21.3 %; Mean Corpuscular Hemoglobin 26.7 pg (28.0-33.3); Mean Corpuscular Volume 83.5 fL (83.0-100.0); Mean Platelet Volume 10.6 fL (9.4-12.4); Monocytes # 0.5 K/mcL (0.0-1.3); Monocytes % 8.3 %; Platelet Count 210 K/mcL (140-400); Red Blood Count 3.93 M/mcL (3.82-4.97); Red Cell Distribution Width 13.8 % (11.5-14.5)
[2018-03-03] MEDS ORDERED: Ipratropium/Albuterol Neb 3 ML IH PRN (11:47)
[2018-03-03] MEDS: Ipratropium/Albuterol Neb 3 ML IH SCH ×3 (12:07→22:21)
--- NOTE | 2018-03-03 13:29 | Internal Med Progress Note ---
<Pam Pennington - Last Filed: 03/03/18 14:15> Hospitalist Progress Note - Encounter Date of Encounter: 03/03/18 - Exam Vitals: Temp Pulse Resp BP Pulse Ox 97.8 F 86 16 123/72 95 03/03/18 10:48 03/03/18 10:48 03/03/18 10:48 03/03/18 10:48 03/03/18 10:48 - Assessment and Plan (1) Ventral hernia with bowel obstruction Current Visit: Yes Status: Acute (2) Hypertension Current Visit: Yes Status: Chronic (3) Asthma Current Visit: Yes Status: Chronic (4) History of DVT (deep vein thrombosis) Current Visit: Yes Status: Acute (5) Vertigo Current Visit: Yes Status: Chronic (6) Sinus tachycardia Current Visit: Yes Status: Acute (7) DVT prophylaxis Current Visit: Yes Status: Acute - Time Spent with Patient Total time spent is greater than 50% in coordination of care (as documented) at patient's floor/unit and/or counseling patient: Internal Medicine: Result - Labs CBC & Chem 7: 03/03/18 07:15 03/03/18 07:15 Labs: Short CBC 03/03/18 Range/Units 07:15 WBC 5.9 (4.3-11.1) K/mcL Hgb 10.5 L (11.5-15.4) g/dL Hct 32.8 L (35.3-44.9) % Plt Count 210 (140-400) K/mcL Neutrophils # 4.0 (1.6-8.9) K/mcL BMP 03/03/18 07:15 Sodium 142 Potassium 3.4 L Chloride 112 H Carbon Dioxide 23 BUN 10 Creatinine 0.63 Glucose 87 Calcium 8.4 L - ABG Interpretation ABG results: PT/INR, D-dimer PT 12.1 Seconds (9.4-12.1) 03/01/18 08:37 Consult Discharge Plan - Plan Referrals: Jad Lang MD [Primary Care Provider] - - Attending Attestation I examined this patient and my medical decision-making was reviewed with the Resident Physician. I agree with the documented findings, disposition and treatment plan as described except to the extent set forth below/addl details below. Ms Aguayo was admitted by surgery team for SBO with incarceration of vwntral hernia with hx mesh repair of ventrl hernia. Hospitalist consult for possible paroxysmal afib and hyperglycemia Pt independently seen and examined Awake, overall feeling well, no current abd pain, nausea, emesis or fevers/ chills. gen- alert, awake,appears stated age cv- reg rate and rhythm, normal s1,s2, no murmurs appreciated, radial pulse 2+ and regular, no le edema, no jvd lungs- ctabl, no wheezing, rhonchi or crackles abd- soft, non tender, non distended, decreased bs neuro- AAOx3 Questionable episode afib, not confirmed by tele or EKG, appears to have been sinus tachycardia- remains NSR currently, cont on tele in pre/post op setting, would obtain EKG in AM pre op, tsh wnl, echo normal EF, mild diastolic dysfunction, no sig valvular disease, would monitor K+ and Mag with AM check 03/04 ordered and replete to goal K+.4 and Mag >2, monitor hgb post op Hyperglycemia, with bs now at goal, A1C 5.7, no further intervention, cont to monitor with accu checks Ventral Hernia with Bowel Obstruction, non healing surgical wound- management as per surgery, plan for OR 03/04 for mesh removal and hernia repair with wound vac, abx as per surgery <Suzi Clay - Last Filed: 03/03/18 18:29> Hospitalist Progress Note - Encounter Date of Encounter: 03/03/18 Time of Encounter: 08:50 - Subjective Interval History: Ms. Aguayo was seen at bedside this morning. She had no events overnight. Her potassium was noted to be low which was replaced. She was comfortable and had just finished her breakfast. She was eager about her surgery tomorrow because she stated she waited too long to have this intervention. She denied fever, chills, nausea, emesis, shortness of breath, chest pain or abdominal pain. - Exam Vitals: Temp Pulse Resp BP Pulse Ox 97.8 F 86 16 123/72 95 03/03/18 10:48 03/03/18 10:48 03/03/18 10:48 03/03/18 10:48 03/03/18 10:48 Exam: Constitutional: Alert, in no acute distress, comfortable in bed HEENT: Normocephalic, atraumatic, moist mucus membrane Heart: Normal, regular rate and rhythm, no murmurs Lungs: lungs clear and equal bilaterally Abdomen: Soft, nontender, had a bandage on the anterior of abdomen, which shows some thick serosengenous fluid Extremities: No edema, no clubbing Skin: Skin warm and dry, no lesions, no rashes, no jaundice Psych: thought content congruent, appropriate affect Neurological Alert and oriented x 3 - Assessment and Plan (1) Sinus tachycardia Current Visit: Yes Status: Acute Assessment and Plan: Resolved. Was consulted due to episode of irregular rate. Her heart rate this morning was 61 and blood pressuer was 126/76. EKG on 03/01/18 showed sinus rhythm. Plan: Continue to monitor patient on telemetry TSH within normal limits and Echocardiogram showed EF fo 60 to 65% with mild LV diastolic dysfunction 5 mg lopressor Q6 PRN (2) Hypertension Current Visit: Yes Status: Chronic Assessment and Plan: Patient does report a history of hypertension management but had stopped taking her medication due to side effects. Patient's blood pressure since admission continues to be within normal limits. Plan: Will hold off on starting scheduled antihypertensive at this time due to controlled blood pressure but to continue to monitor (3) Ventral hernia with bowel obstruction Current Visit: Yes Status: Acute Assessment and Plan: Patient presented to the ER on 02/28/18 due to abdominal pain with nausea and vomiting. She was found to have a distal small bowel obstruction secondary to incarcerated lower ventral hernia on imaging. Plan: Management per surgery Planned for surgical intervention tomorrow NPO after midnight (4) Asthma Current Visit: Yes Status: Chronic Assessment and Plan: History of asthma. Patient not in exacerbation Plan: Albuterol as needed (5) History of DVT (deep vein thrombosis) Current Visit: Yes Status: Acute Assessment and Plan: Patient reports a history of DVT but appeared to have been provoked by prior surgery in the past. . Plan: Agree with continuing SCDs for DVT prophylaxis. Consider starting heparin post surgical intervention tomorrow (6) Vertigo Current Visit: Yes Status: Chronic Assessment and Plan: Patient reports a history of intermittent dizziness and has been diagnosed with BPPV. She is managed with meclizine as needed as an outpatient. Plan: Patient currently asymptomatic but agreed taking meclizine as needed (7) Hypokalemia Current Visit: Yes Status: Acute Assessment and Plan: Her potassium this morning was 3.5 and was replaced with 40 mg of PO potassium chloride. Continue to monitor. (8) DVT prophylaxis Current Visit: Yes Status: Acute Assessment and Plan: SCDs - Time Spent with Patient Total time spent is greater than 50% in coordination of care (as documented) at patient's floor/unit and/or counseling patient: 25 - 35 minutes Plan of Care Discussed with: patient Internal Medicine: Result - Labs CBC & Chem 7: 03/03/18 07:15 03/03/18 07:15 Labs: Short CBC 03/03/18 Range/Units 07:15 WBC 5.9 (4.3-11.1) K/mcL Hgb 10.5 L (11.5-15.4) g/dL Hct 32.8 L (35.3-44.9) % Plt Count 210 (140-400) K/mcL Neutrophils # 4.0 (1.6-8.9) K/mcL BMP 03/03/18 07:15 Sodium 142 Potassium 3.4 L Chloride 112 H Carbon Dioxide 23 BUN 10 Creatinine 0.63 Glucose 87 Calcium 8.4 L - ABG Interpretation ABG results: PT/INR, D-dimer PT 12.1 Seconds (9.4-12.1) 03/01/18 08:37 <Pam Pennington - Last Filed: 03/03/18 14:15> (2) Hypertension Qualifiers: Hypertension type: essential hypertension Qualified Code(s): I10 - Essential (primary) hypertension (3) Asthma Qualifiers: Asthma severity: mild Asthma persistence: intermittent Asthma complication type: uncomplicated Qualified Code(s): J45.20 - Mild intermittent asthma, uncomplicated <Obed,Suzi - Last Filed: 03/03/18 18:29> (2) Hypertension Qualifiers: Hypertension type: essential hypertension Qualified Code(s): I10 - Essential (primary) hypertension (4) Asthma Qualifiers: Asthma severity: mild Asthma persistence: intermittent Asthma complication type: uncomplicated Qualified Code(s): J45.20 - Mild intermittent asthma, uncomplicated
--- NOTE | 2018-03-03 20:14 | Anesthesia Evaluation PreOp ---
Date of Encounter: 03/03/18 Time of Encounter: 20:12 - Past History Planned Operation: Incisional hernia repair, mesh removal, wound vac Cardiac History: Arrhythmia (afib) Pulmonary History: Asthma, COPD EXHIBITION ORGANISER History: Other (vertigo) Other Medical History: Other (glaucoma, non healing surgical wound) Anesthesia History: Past Anesthesia (hysterectomy, EGD, debridement abdominal wound), Problems (PONV) Alcohol Use: none Drug use: none Medications and Allergies Aspirin 325 mg PO DAILY 11/05/15 [History] 3 Allergy/AdvReac Type Severity Reaction Status Date / Time ciprofloxacin [From Cipro] Allergy Muscle Pain Verified 11/05/15 14:55 Sulfa (Sulfonamide Allergy Vomiting Verified 05/16/15 11:45 Antibiotics) - Meds/Allergy Pre-op Review Medications Reviewed: Yes Allergies Reviewed: Yes Beta Blockers on Current Med List: No Anesthesia Results - Labs 03/03/18 07:15 03/03/18 07:15 Laboratory Tests 03/01/18 08:37 PT 12.1 INR 1.1 - Imaging EKG: report reviewed (SINUS RHYTHM WITH SINUS ARRHYTHMIA LOW QRS VOLTAGE IN PRECORDIAL LEADS Electronically Signed On 03-02-2018 15:43:11 EDT by Bartolo Antunez) Additional studies: ECHO 03/02/18 Impressions: LVEF 60-65%. Normal LV chamber size, wall thickness and function. Mild left ventricular diastolic dysfunction. Normal right ventricular structure and function. No evidence of pulmonary hypertension. No significant valvular dysfunction. Anesthesia Exam Vital Signs/O2 Sat, Most Current Temp Pulse Resp BP Pulse Ox 97.9 F 82 14 145/84 97 03/03/18 20:08 03/03/18 20:08 03/03/18 20:08 03/03/18 20:08 03/03/18 20:08 Weight: 92kg NPO (# of Hours): MN - HEENT Pupil (Motor): Pupils equal, EOMI Mallampati: III Teeth: Missing Denture Type: Lower: Partial Oral Opening: Greater than 3 - EXHIBITION ORGANISER LOC: Oriented EXHIBITION ORGANISER Motor: Normal RUE, Normal LUE, Normal RLE, Normal LLE, Normal Face EXHIBITION ORGANISER Sensory: Normal: RUE, LUE, RLE, LLE, Face - Cardiac Rhythm: Regular - Pulmonary Breath Sounds: bilateral Clear Respiratory Effort: Symmetrical Anesthesia Assess/Plan ASA Score: 3 Modified Carmeltia Scale for Level of Consciousness: Cooperative, oriented, and tranquil Anesthetic Plan: General Monitoring Plan: Standard Monitors Recovery Plan: PACU
[2018-03-04] MEDS: Ipratropium/Albuterol Neb 3 ML IH SCH ×3 (03:37→15:57)
[2018-03-04] MEDS: 0.9 % Sodium Chloride 1,000 ML IVC SCH ×3 (03:53→20:31)
[2018-03-04] MEDS ORDERED: ceFAZolin 1,000 MG, Sodium Chloride IRRigation 1,000 ML IR ONE ×2 (06:00→17:41)
[2018-03-04 06:31] LABS: Basophils % 0.5 %; Eosinophils # 0.1 K/mcL (0.0-0.6); Eosinophils % 0.9 %; Hematocrit 33.7 % (35.3-44.9); Hemoglobin 10.4 g/dL (11.5-15.4); Immature Granulocytes % 0.5 % (0-4); Lymphocytes # 1.6 K/mcL (0.6-4.6); Lymphocytes % 24.5 %; Mean Corpuscular HGB Conc 30.9 g/dL (31.6-35.5); Mean Corpuscular Hemoglobin 26.3 pg (28.0-33.3); Mean Corpuscular Volume 85.1 fL (83.0-100.0); Mean Platelet Volume 10.6 fL (9.4-12.4); Monocytes # 0.6 K/mcL (0.0-1.3); Monocytes % 9.4 %; Neutrophils # 4.2 K/mcL (1.6-8.9); Platelet Count 226 K/mcL (140-400); Red Blood Count 3.96 M/mcL (3.82-4.97); Red Cell Distribution Width 13.7 % (11.5-14.5); Segmented Neutrophils % 64.2 %
[2018-03-04] MEDS: Piperacillin/Tazobactam 3.375 GM in 0.9 % Sodium Chloride Mini Bag 100 ML IVPB SCH (06:32)
[2018-03-04 06:46] LABS: BUN/Creatinine Ratio 10 (6-26); Blood Urea Nitrogen 7 mg/dL (8-23); Calcium 8.7 mg/dL (8.6-10.3); Carbon Dioxide 24 mEq/L (23-29); Chloride 111 mEq/L (98-107); Glucose 90 mg/dL (70-105); Magnesium 1.7 mg/dL (1.6-2.6); Osmolality,Calculated 294 (280-300); Potassium 3.3 mEq/L (3.5-5.1); Sodium 143 mEq/L (136-145); eGFR For Non-African Americans > 60 (> 60)
[2018-03-04] MEDS ORDERED: Ondansetron 4 MG/2 ML VIAL ONE (11:58)
[2018-03-04] MEDS ORDERED: *HR* Rocuronium Bromide 50 MG/5 ML VIAL ONE ×2 (11:58→12:06)
[2018-03-04] MEDS ORDERED: *HR* Succinylcholine 200 MG/10 ML VIAL IVP ONE ×2 (11:58→12:06)
[2018-03-04] MEDS ORDERED: Dexamethasone 4 MG/ML VIAL ONE (11:58)
[2018-03-04] MEDS ORDERED: Lidocaine -MPF 2% 2 ML VIAL ONE ×2 (11:58→12:05)
[2018-03-04] MEDS ORDERED: *HR* Propofol 200 MG/20 ML VIAL IVP ONE ×2 (11:59→12:05)
[2018-03-04] MEDS ORDERED: *HR* FentaNYL (PF) 100 MCG/2 ML VIAL ONE ×3 (11:59→12:06)
[2018-03-04] MEDS ORDERED: *HR* Midazolam HCl 2 MG/2 ML VIAL ONE ×2 (11:59→12:05)
[2018-03-04] MEDS ORDERED: Acetaminophen IV 1,000 MG/100 ML INFUS..BTL ONE (12:32)
[2018-03-04] MEDS ORDERED: Bupivacaine/EPI 1:200k 0.25%PF 10 ML VIAL INFILT ONE (13:03)
--- NOTE | 2018-03-04 13:07 | Internal Med Progress Note ---
<Pam Pennington - Last Filed: 03/04/18 13:59> Hospitalist Progress Note - Encounter Date of Encounter: 03/04/18 - Exam Vitals: Temp Pulse Resp BP Pulse Ox 98.1 F 67 15 159/78 98 03/04/18 10:24 03/04/18 10:24 03/04/18 10:24 03/04/18 10:24 03/04/18 10:24 - Assessment and Plan (1) Ventral hernia with bowel obstruction Current Visit: Yes Status: Acute (2) Hypertension Current Visit: Yes Status: Chronic (3) Asthma Current Visit: Yes Status: Chronic (4) History of DVT (deep vein thrombosis) Current Visit: Yes Status: Acute (5) Vertigo Current Visit: Yes Status: Chronic (6) Sinus tachycardia Current Visit: Yes Status: Acute (7) DVT prophylaxis Current Visit: Yes Status: Acute - Time Spent with Patient Total time spent is greater than 50% in coordination of care (as documented) at patient's floor/unit and/or counseling patient: Internal Medicine: Result - Labs CBC & Chem 7: 03/04/18 05:50 03/04/18 05:50 Labs: Short CBC 03/04/18 Range/Units 05:50 WBC 6.6 (4.3-11.1) K/mcL Hgb 10.4 L (11.5-15.4) g/dL Hct 33.7 L (35.3-44.9) % Plt Count 226 (140-400) K/mcL Neutrophils # 4.2 (1.6-8.9) K/mcL BMP 03/04/18 05:50 Sodium 143 Potassium 3.3 L Chloride 111 H Carbon Dioxide 24 BUN 7 L Creatinine 0.67 Glucose 90 Calcium 8.7 - ABG Interpretation ABG results: PT/INR, D-dimer PT 12.1 Seconds (9.4-12.1) 03/01/18 08:37 Consult Discharge Plan - Plan Referrals: Jad Lang MD [Primary Care Provider] - - Attending Attestation I examined this patient and my medical decision-making was reviewed with the Resident Physician Dr Clay. I agree with the documented findings, disposition and treatment plan as described except to the extent set forth below/addl details below. Ms Aguayo was admitted by surgery team for SBO with incarceration of ventral hernia with hx mesh repair of ventral hernia. Hospitalist consult for possible paroxysmal afib and hyperglycemia Awake, overall feeling well, no current abd pain, No chest pain, sob or palpitations. gen- alert, awake,appears stated age cv- reg rate and rhythm, normal s1,s2, no murmurs appreciated, radial pulse 2+ and regular lungs- ctabl, no wheezing, rhonchi or crackles, normal resp effort on room air abd- soft, non tender, non distended, decreased bs neuro- AAOx3 Questionable episode afib, not confirmed by tele or EKG, appears to have been sinus tachycardia- remains NSR currently, cont on tele in pre/post op setting, tsh wnl, echo normal EF, mild diastolic dysfunction, no sig valvular disease Hypokalemia, IV repletion this am prior to OR given Hyperglycemia, with bs now at goal, A1C 5.7, no further intervention, cont to monitor with accu checks Ventral Hernia with Bowel Obstruction, non healing surgical wound- management as per surgery, plan for OR 03/04 for mesh removal and hernia repair with wound vac, abx as per surgery <Suzi Clay - Last Filed: 03/04/18 16:59> Hospitalist Progress Note - Encounter Date of Encounter: 03/04/18 Time of Encounter: 08:35 - Subjective Interval History: Ms. Aguayo was seen at bedside this morning. She had no events overnight. Her potassium was noted to be low which was replaced. She was comfortable and had just finished her breakfast. She was eager about her surgery tomorrow because she stated she waited too long to have this intervention. She denied fever, chills, nausea, emesis, shortness of breath, chest pain or abdominal pain. - Exam Vitals: Temp Pulse Resp BP Pulse Ox 98.1 F 67 15 159/78 98 03/04/18 10:24 03/04/18 10:24 03/04/18 10:24 03/04/18 10:24 03/04/18 10:24 Exam: Constitutional: Alert, in no acute distress, comfortable in bed HEENT: Normocephalic, atraumatic, moist mucus membrane Heart: Normal, regular rate and rhythm, no murmurs Lungs: lungs clear and equal bilaterally Abdomen: Soft, nontender, had a bandage on the anterior of abdomen, active bowel sound Extremities: No edema, no clubbing Skin: Skin warm and dry, no lesions, no rashes, no jaundice Psych: thought content congruent, appropriate affect Neurological : Alert and oriented x 3 - Assessment and Plan (1) Ventral hernia with bowel obstruction Current Visit: Yes Status: Acute Assessment and Plan: Patient presented to the ER on 02/28/18 due to abdominal pain with nausea and vomiting. She was found to have a distal small bowel obstruction secondary to incarcerated lower ventral hernia on imaging. Plan: Management per surgery Planned for surgical intervention today (2) Hypertension Current Visit: Yes Status: Chronic Assessment and Plan: Patient does report a history of hypertension management but had stopped taking her medication due to side effects. Patient's blood pressure since admission was normal but today has been high. Plan: Will start an antihypertensive (3) Asthma Current Visit: Yes Status: Chronic (4) History of DVT (deep vein thrombosis) Current Visit: Yes Status: Acute Assessment and Plan: Patient reports a history of DVT but appeared to have been provoked by prior surgery in the past. . Plan: Agree with continuing SCDs for DVT prophylaxis Consider starting heparin post surgical intervention tomorrow (5) Vertigo Current Visit: Yes Status: Chronic Assessment and Plan: Patient reports a history of intermittent dizziness and has been diagnosed with BPPV. She is managed with meclizine as needed as an outpatient. Plan: Patient currently asymptomatic but agreed taking meclizine as needed (6) Sinus tachycardia Current Visit: Yes Status: Acute Assessment and Plan: Resolved. Was consulted due to episode of irregular rate. Her heart rate this morning was 61 and blood pressuer was 126/76. EKG on 03/01/18 showed sinus rhythm. Plan: Continue to monitor patient on telemetry TSH within normal limits and Echocardiogram showed EF fo 60 to 65% with mild LV diastolic dysfunction 5 mg lopressor Q6 PRN (7) Hypokalemia Current Visit: Yes Status: Acute Assessment and Plan: Her potassium this morning was 3.3 and it was replaced Plan: Continue to monitor and replace as needed (8) DVT prophylaxis Current Visit: Yes Status: Acute Assessment and Plan: SCDs - Time Spent with Patient Total time spent is greater than 50% in coordination of care (as documented) at patient's floor/unit and/or counseling patient: 25 - 35 minutes Plan of Care Discussed with: patient Internal Medicine: Result - Labs CBC & Chem 7: 03/04/18 05:50 03/04/18 05:50 Labs: Short CBC 03/04/18 Range/Units 05:50 WBC 6.6 (4.3-11.1) K/mcL Hgb 10.4 L (11.5-15.4) g/dL Hct 33.7 L (35.3-44.9) % Plt Count 226 (140-400) K/mcL Neutrophils # 4.2 (1.6-8.9) K/mcL BMP 03/04/18 05:50 Sodium 143 Potassium 3.3 L Chloride 111 H Carbon Dioxide 24 BUN 7 L Creatinine 0.67 Glucose 90 Calcium 8.7 - ABG Interpretation ABG results: PT/INR, D-dimer PT 12.1 Seconds (9.4-12.1) 03/01/18 08:37 <Pam Pennington - Last Filed: 03/04/18 13:59> (2) Hypertension Qualifiers: Hypertension type: essential hypertension Qualified Code(s): I10 - Essential (primary) hypertension (3) Asthma Qualifiers: Asthma severity: mild Asthma persistence: intermittent Asthma complication type: uncomplicated Qualified Code(s): J45.20 - Mild intermittent asthma, uncomplicated <Obed,Suzi - Last Filed: 03/04/18 16:59> (2) Hypertension Qualifiers: Hypertension type: essential hypertension Qualified Code(s): I10 - Essential (primary) hypertension (3) Asthma Qualifiers: Asthma severity: mild Asthma persistence: intermittent Asthma complication type: uncomplicated Qualified Code(s): J45.20 - Mild intermittent asthma, uncomplicated
[2018-03-04] MEDS ORDERED: Lidocaine -MPF 4% 5 ML AMPUL ONE (13:30)
[2018-03-04] MEDS ORDERED: *HR* HYDROmorphone 2 MG/ML SYRINGE ONE (13:47)
[2018-03-04] MEDS ORDERED: *HR* Promethazine 25 MG/ML VIAL IVP PRN ×2 (14:25→17:41)
[2018-03-04] MEDS ORDERED: *HR* Meperidine 25 MG/ML SYRINGE IVP PRN (14:25)
[2018-03-04] MEDS ORDERED: *HR* HYDROmorphone (PF) 1 MG/ML SYRINGE IVP PRN ×2 (14:25→17:41)
[2018-03-04] MEDS ORDERED: *HR* Labetalol 20 MG/4 ML SYRINGE IVP PRN (14:25)
[2018-03-04] MEDS ORDERED: Ondansetron 4 MG/2 ML VIAL IVP ONE (14:25)
--- NOTE | 2018-03-04 16:09 | Operative Note ---
Date of procedure: 03/04/18 Pre-op diagnosis: Incisional hernia. Infected abdominal wall mesh Post-op diagnosis: same Procedure: #1. Removal of abdominal wall mesh #2. Repair of incisional hernia #3. Lysis of adhesions for 1.5 hours #4. Repair of one enterotomy (unavoidable) #5. Placement of wound VAC (negative pressure wound dressing at -125 mmHg pressure) Anesthesia: BONG Surgeon: Jaime Huff Was there an events administrative assistant present: No Estimated blood loss (cc): 100 Specimen: Extensive hernia sac Condition: stable Disposition: PACU Procedure in Detail: After informed consent the patients taking major operative suite placed in the supine position given adequate general anesthetic. The abdomen is prepped and draped with Betadine solution secondary to open draining wounds on the lower abdomen. Timeout was taken and the patient is identified. I opened the abdomen down to the midline. I encountered folded and pus covered mesh with several granulated tracks. The granulated tracts were debrided and removed. I encountered an incisional hernia above and below the mesh I entered each hernia sac and reduce the bowel into the abdomen. I started lysis of adhesions. Over the next 1.5 hours I carefully dissected the small bowel free from the mesh. This is quite difficult because the mesh was herniated into the defect and folded along with the small bowel. Extended portions of the small bowel had direct ingrowth into the mesh. One unavoidable enterotomy was created at a area of dense fold. This may have been a fistula 1 time. Once the small bowel was from the mesh I closed the enterotomy in 2 layers with interrupted Vicryl and interrupted silk. This given excellent technical result. The lower part of the mesh was eroded into the bladder wall. I carefully removed the entire bladder wall and the bladder mucosa was intact with no openings in the urinary bladder. I did place a Vasquez catheter at the end of the case to decompress the bladder so that this heals normally. The abdomen was irrigated with copious amounts of antibiotic containing solution. I completely remove the mesh which extended well past the pubis between the bladder and the pubis mesh removal was quite difficult. Once the mesentery was removed I removed all of the hernia sacs and mobilize the midline fascia and midline fascia was then closed with 16 stitches of interrupted 0 Vicryl. This gave an excellent technical result. The abdominal wall was cleansed and prepared with AlloDerm. Once this was done I fashioned a black negative pressure wound dressing sponge and placed this in the midline defect. The first layer of occlusive plastic was placed without difficulty I created an opening over black sponge in place the second layer plastic with the drainage tubing. This gave an excellent technical result and negative pressure wound therapy at -125 mmHg pressure was initiated with no leak. The patient tolerated the procedure well and was transferred to recovery in stable condition.
--- NOTE | 2018-03-04 17:11 | Anesthesia Evaluation Post Op ---
Date of Encounter: 03/04/18 Time of Encounter: 17:08 - Vital Signs Vital Signs: Vital Signs/O2 Sat/Glucose, Most Recent Temp Pulse Resp BP Pulse Ox 97.8 F 81 18 151/82 97 03/04/18 16:39 03/04/18 16:39 03/04/18 16:39 03/04/18 16:39 03/04/18 16:39 Blood Glucose* 83 - Lungs Lungs: Clear Ascult./Percussion - Airway Airway: Non-obstructed - Cardiovascular Regular Rate, Baseline Rhythm - Mental Status Mental Status: Asleep with brisk response to light stimulation, Baseline Status - Pain Pain Scale: 0 Pain Scale used: Numeric (1 - 10) - Nausea Vomiting Nausea Vomiting: Not Present Notes: 03/04/18 17:09 pt is mildly combative when spoken to. Dr. Huff states this is same as baseline status preop. Pt refuses PO ice chips and water. Denies pain. Complains of SCD pumps being very bothersome. Dr. Vera aware. Ok to d/c to floor. - Discharge PostOp Status: Transfer Patient to floor
[2018-03-04] MEDS ORDERED: Ondansetron 4 MG/2 ML VIAL IVP PRN (17:41)
[2018-03-04] MEDS ORDERED: Albuterol 2.5 MG/3 ML NEBULIZER IH PRN (17:41)
[2018-03-04] MEDS ORDERED: *HR* Metoprolol 5 MG/5 ML VIAL IVP PRN (17:41)
[2018-03-04] MEDS ORDERED: Ipratropium/Albuterol Neb 3 ML IH PRN (17:41)
[2018-03-04] MEDS ORDERED: Naloxone 0.4 MG/ML INJ IVP PRN (17:41)
[2018-03-04] MEDS ORDERED: Ipratropium/Albuterol Neb 3 ML IH SCH (22:00)
[2018-03-05] MEDS: OXYCODONE Oral CONC 10 MG/0.5 ML ORAL.SYG SL PRN ×2 (00:20→21:31)
[2018-03-05 04:27] LABS: Basophils % 0.1 %; Hematocrit 31.6 % (35.3-44.9); Hemoglobin 10.3 g/dL (11.5-15.4); Immature Granulocytes % 0.3 % (0-4); Lymphocytes # 1.1 K/mcL (0.6-4.6); Lymphocytes % 11.1 %; Mean Corpuscular HGB Conc 32.6 g/dL (31.6-35.5); Mean Corpuscular Hemoglobin 26.9 pg (28.0-33.3); Mean Corpuscular Volume 82.5 fL (83.0-100.0); Mean Platelet Volume 10.2 fL (9.4-12.4); Monocytes # 0.7 K/mcL (0.0-1.3); Monocytes % 7.5 %; Platelet Count 221 K/mcL (140-400); Red Blood Count 3.83 M/mcL (3.82-4.97); Red Cell Distribution Width 14.2 % (11.5-14.5)
[2018-03-05 04:46] LABS: BUN/Creatinine Ratio 13 (6-26); Blood Urea Nitrogen 7 mg/dL (8-23); Calcium 8.5 mg/dL (8.6-10.3); Carbon Dioxide 21 mEq/L (23-29); Chloride 108 mEq/L (98-107); Glucose 93 mg/dL (70-105); Magnesium 1.7 mg/dL (1.6-2.6); Osmolality,Calculated 286 (280-300); Potassium 4.1 mEq/L (3.5-5.1); Sodium 139 mEq/L (136-145); eGFR For Non-African Americans > 60 (> 60)
[2018-03-05] MEDS: 0.9 % Sodium Chloride 1,000 ML IVC SCH ×3 (05:17→21:33)
[2018-03-05] MEDS: Acetaminophen 325 MG TABLET PO PRN (11:38)
--- NOTE | 2018-03-05 16:02 | General Surgery Progress Note ---
Date of Encounter: 03/05/18 Time of Encounter: 07:15 - Assessment and Plan (1) Ventral hernia with bowel obstruction Current Visit: Yes Status: Acute The patient is postoperative day 1 from removal of infected mesh and subsequent [place] tissue repair of the incisional hernia with negative pressure wound dressing applied. She is doing quite well. We will continue supportive care day. Subjective Narrative: The patient is postoperative day 1 from infected mesh removal and primary fascial repair of incisional hernia. Because of the chronic infection, she has a wound VAC on the midline wound for pain control is excellent. She is tolerating clear liquid diet. Continue antibiotics today and Objective Vital Signs - Last 8 Hours Temp Pulse Resp BP Pulse Ox 03/05/18 15:38 98.7 F 86 15 122/69 95 Intake and Output 03/04/18 03/05/18 03/05/18 23:59 07:59 15:59 Intake Total 0 / 0 1060 / 1060 1360 / 1360 Output Total 1700 / 1700 1450 / 1450 550 / 550 Balance -1700 / -1700 -390 / -390 810 / 810 Intake: IV Fluids 1000 / 1000 1000 / 1000 0.9 % Sodium Chloride 1,000 ML 1000 / 1000 1000 / 1000 @ 125 mls/hr IVC .Q8H KT Rx#: [id number] Oral 0 / 0 60 / 60 360 / 360 Output: Urine 300 / 300 Estimated Blood Loss 100 / 100 Urine Amount (Catheter) 700 / 700 Catheter 550 / 550 1450 / 1450 550 / 550 Wound Drainage 50 / 50 Abdomen 50 / 50 Other: Meal NPO Lunch Percent of Meal Consumed 25% # Bowel Movements 0 0 0 Weight 93.4 kg Blood Glucose* 128 Patient Weight 03/05/18 23:59 Weight 93.4 kg - General physical appearance well developed, well nourished, no pain - Respiratory normal expansion, normal respiratory effort, clear to percussion, clear to auscultation - Cardiovascular Cardiovascular exam: Present: RRR, regular rhythm, no murmurs/rubs/gallops - Abdomen Abdomen: Present: bowel sounds present, soft (Negative pressure wound dressing in place and functioning) - Neurologic normal coordination, normal sensation - Psychiatric oriented to time, oriented to person, oriented to place, speech is normal, memory intact - Labs 03/05/18 03:30 03/05/18 03:30 Diabetes panel 03/05/18 Range/Units 03:30 Sodium 139 (136-145) mEq/L Potassium 4.1 (3.5-5.1) mEq/L Chloride 108 H (98-107) mEq/L Carbon Dioxide 21 L (23-29) mEq/L BUN 7 L (8-23) mg/dL Creatinine 0.55 L (0.60-1.20) mg/dL Glucose 93 (70-105) mg/dL Calcium 8.5 L (8.6-10.3) mg/dL Calcium panel 03/05/18 Range/Units 03:30 Calcium 8.5 L (8.6-10.3) mg/dL Pituitary panel 03/05/18 Range/Units 03:30 Sodium 139 (136-145) mEq/L Potassium 4.1 (3.5-5.1) mEq/L Chloride 108 H (98-107) mEq/L Carbon Dioxide 21 L (23-29) mEq/L BUN 7 L (8-23) mg/dL Creatinine 0.55 L (0.60-1.20) mg/dL Glucose 93 (70-105) mg/dL Calcium 8.5 L (8.6-10.3) mg/dL Adrenal panel 03/05/18 Range/Units 03:30 Sodium 139 (136-145) mEq/L Potassium 4.1 (3.5-5.1) mEq/L Chloride 108 H (98-107) mEq/L Carbon Dioxide 21 L (23-29) mEq/L BUN 7 L (8-23) mg/dL Creatinine 0.55 L (0.60-1.20) mg/dL Glucose 93 (70-105) mg/dL Calcium 8.5 L (8.6-10.3) mg/dL Consult Discharge Plan - Plan Referrals: Jad Lang MD [Primary Care Provider] -
--- NOTE | 2018-03-05 16:30 | Internal Med Progress Note ---
<Suzi Clay - Last Filed: 03/05/18 16:27> Hospitalist Progress Note - Encounter Date of Encounter: 03/05/18 Time of Encounter: 10:05 - Subjective Interval History: Ms. Aguayo was seen at bedside this morning. She had no events overnight. Her vitals and labs stayed within normal limits during her stay. She was comfortable and had just finished her breakfast. She noted that her mesh was attached to the bladder wall and would require a [place] for 1 week even outpatient. She denied fever, chills, nausea, emesis, cough, shortness of breath , chest pain or abdominal pain. - Exam Vitals: Temp Pulse Resp BP Pulse Ox 98.7 F 86 15 122/69 95 03/05/18 15:38 03/05/18 15:38 03/05/18 15:38 03/05/18 15:38 03/05/18 15:38 Exam: Constitutional: Alert, in no acute distress, comfortable in bed HEENT: Normocephalic, atraumatic, moist mucus membrane Heart: Normal, regular rate and rhythm, no murmurs Lungs: lungs clear and equal bilaterally Abdomen: Soft, nontender, had a bandage on the anterior of abdomen, active bowel sound Extremities: No edema, no clubbing, no tenderness when pressing the calfs bilaterally, calf pumps on Skin: Skin warm and dry, no lesions, no rashes, no jaundice Psych: thought content congruent, appropriate affect Neurological : Alert and oriented x 3 - Assessment and Plan (1) Ventral hernia with bowel obstruction Current Visit: Yes Status: Acute Assessment and Plan: Patient presented to the ER on 02/28/18 due to abdominal pain with nausea and vomiting. She was found to have a distal small bowel obstruction secondary to incarcerated lower ventral hernia on imaging. S/P surgery yesterday. Plan: Management per surgery Planned for surgical intervention today (2) Hypertension Current Visit: Yes Status: Chronic Assessment and Plan: Patient does report a history of hypertension management but had stopped taking her medication due to side effects. Patient's blood pressure since admission was normal but today has been high. Plan: Continue lopressor Q6H PRN Continue to monitor (3) Asthma Current Visit: Yes Status: Chronic Assessment and Plan: History of asthma. Patient not in exacerbation. Ordered incentive spirometery due to post op to prevent any development of atelectasis. Plan: Albuterol as needed (4) History of DVT (deep vein thrombosis) Current Visit: No Status: Chronic Assessment and Plan: Patient reports a history of DVT but appeared to have been provoked by prior surgery in the past. Plan: Continue SCDs as she is post op to prevent any bleeding complications (5) Vertigo Current Visit: Yes Status: Chronic Assessment and Plan: Patient reports a history of intermittent dizziness and has been diagnosed with BPPV. She is managed with meclizine as needed as an outpatient. Plan: Patient currently asymptomatic but agreed taking meclizine as needed (6) Sinus tachycardia Current Visit: Yes Status: Acute Assessment and Plan: Resolved. Was consulted due to episode of irregular rate. Her heart rate this morning was 61 and blood pressuer was 126/76. EKG on 03/01/18 showed sinus rhythm. Plan: Continue to monitor patient on telemetry TSH within normal limits and Echocardiogram showed EF fo 60 to 65% with mild LV diastolic dysfunction 5 mg lopressor Q6 PRN (7) DVT prophylaxis Current Visit: Yes Status: Acute Assessment and Plan: SCDs - Time Spent with Patient Total time spent is greater than 50% in coordination of care (as documented) at patient's floor/unit and/or counseling patient: less than 15 minutes Plan of Care Discussed with: patient Internal Medicine: Result - Labs CBC & Chem 7: 03/05/18 03:30 03/05/18 03:30 Labs: Short CBC 03/05/18 Range/Units 03:30 WBC 9.9 (4.3-11.1) K/mcL Hgb 10.3 L (11.5-15.4) g/dL Hct 31.6 L (35.3-44.9) % Plt Count 221 (140-400) K/mcL Neutrophils # 8.0 (1.6-8.9) K/mcL BMP 03/05/18 03:30 Sodium 139 Potassium 4.1 Chloride 108 H Carbon Dioxide 21 L BUN 7 L Creatinine 0.55 L Glucose 93 Calcium 8.5 L - ABG Interpretation ABG results: PT/INR, D-dimer PT 12.1 Seconds (9.4-12.1) 03/01/18 08:37 Consult Discharge Plan - Plan Referrals: Jad Lang MD [Primary Care Provider] - <Pam Pennington - Last Filed: 03/05/18 16:51> Hospitalist Progress Note - Encounter Date of Encounter: 03/05/18 - Exam Vitals: Temp Pulse Resp BP Pulse Ox 98.7 F 86 15 122/69 95 03/05/18 15:38 03/05/18 15:38 03/05/18 15:38 03/05/18 15:38 03/05/18 15:38 - Assessment and Plan (1) Ventral hernia with bowel obstruction Current Visit: Yes Status: Acute (2) Hypertension Current Visit: Yes Status: Chronic (3) Asthma Current Visit: Yes Status: Chronic (4) History of DVT (deep vein thrombosis) Current Visit: No Status: Chronic (5) Vertigo Current Visit: Yes Status: Chronic (6) Sinus tachycardia Current Visit: Yes Status: Acute (7) DVT prophylaxis Current Visit: Yes Status: Acute - Time Spent with Patient Total time spent is greater than 50% in coordination of care (as documented) at patient's floor/unit and/or counseling patient: Internal Medicine: Result - Labs CBC & Chem 7: 03/05/18 03:30 03/05/18 03:30 Labs: Short CBC 03/05/18 Range/Units 03:30 WBC 9.9 (4.3-11.1) K/mcL Hgb 10.3 L (11.5-15.4) g/dL Hct 31.6 L (35.3-44.9) % Plt Count 221 (140-400) K/mcL Neutrophils # 8.0 (1.6-8.9) K/mcL BMP 03/05/18 03:30 Sodium 139 Potassium 4.1 Chloride 108 H Carbon Dioxide 21 L BUN 7 L Creatinine 0.55 L Glucose 93 Calcium 8.5 L - ABG Interpretation ABG results: PT/INR, D-dimer PT 12.1 Seconds (9.4-12.1) 03/01/18 08:37 - Attending Attestation I examined this patient and my medical decision-making was reviewed with the Resident Physician Dr Clay. I agree with the documented findings, disposition and treatment plan as described except to the extent set forth below/addl details below. Ms Aguayo was admitted by surgery team for SBO with incarceration of ventral hernia with hx mesh repair of ventral hernia. Hospitalist consult for possible paroxysmal afib and hyperglycemia Awake, tired, currently abd pain is tolerable. No sob, cough, chest pain or palpitations gen- alert, awake,appears stated age cv- reg rate and rhythm, normal s1,s2, no murmurs appreciated, radial pulse 2+ and regular lungs- ctabl, no wheezing, rhonchi or crackles, normal resp effort on room air abd- soft, non tender, no guarding, decreased bs neuro- AAOx3 gu- [place] with clear yellow urine in bag Questionable episode afib, not confirmed by tele or EKG, appears to have been sinus tachycardia- remains NSR currently, cont on tele in pre/post op setting, tsh wnl, echo normal EF, mild diastolic dysfunction, no sig valvular disease Hypokalemia, resolved with repletion Hyperglycemia, with bs now at goal, A1C 5.7, no further intervention, cont to monitor with accu checks, bs at goal HTN hx but not on home meds- post op BPs are at goal, no scheduled meds required Ventral Hernia with Bowel Obstruction, non healing surgical wound- management as per surgery, OR 03/04 for mesh removal and hernia repair with wound vac, abx as per surgery, cont [place] cath at dc due to bladder involvement as per surg <Obed,Suzi - Last Filed: 03/05/18 16:27> (2) Hypertension Qualifiers: Hypertension type: essential hypertension Qualified Code(s): I10 - Essential (primary) hypertension (3) Asthma Qualifiers: Asthma severity: mild Asthma persistence: intermittent Asthma complication type: uncomplicated Qualified Code(s): J45.20 - Mild intermittent asthma, uncomplicated <Pam Pennington - Last Filed: 03/05/18 16:51> (2) Hypertension Qualifiers: Hypertension type: essential hypertension Qualified Code(s): I10 - Essential (primary) hypertension (3) Asthma Qualifiers: Asthma severity: mild Asthma persistence: intermittent Asthma complication type: uncomplicated Qualified Code(s): J45.20 - Mild intermittent asthma, uncomplicated
[2018-03-06 01:57] LABS: Basophils % 0.3 %; Eosinophils % 0.4 %; Hematocrit 30.5 % (35.3-44.9); Hemoglobin 9.4 g/dL (11.5-15.4); Immature Granulocytes % 0.3 % (0-4); Lymphocytes # 1.7 K/mcL (0.6-4.6); Lymphocytes % 21.3 %; Mean Corpuscular HGB Conc 30.8 g/dL (31.6-35.5); Mean Corpuscular Hemoglobin 26.3 pg (28.0-33.3); Mean Corpuscular Volume 85.4 fL (83.0-100.0); Mean Platelet Volume 10.7 fL (9.4-12.4); Monocytes # 0.7 K/mcL (0.0-1.3); Monocytes % 9.2 %; Neutrophils # 5.4 K/mcL (1.6-8.9); Platelet Count 203 K/mcL (140-400); Red Blood Count 3.57 M/mcL (3.82-4.97); Red Cell Distribution Width 14.1 % (11.5-14.5); Segmented Neutrophils % 68.5 %
[2018-03-06 02:15] LABS: BUN/Creatinine Ratio 13 (6-26); Blood Urea Nitrogen 8 mg/dL (8-23); Calcium 7.9 mg/dL (8.6-10.3); Carbon Dioxide 24 mEq/L (23-29); Chloride 111 mEq/L (98-107); Glucose 93 mg/dL (70-105); Osmolality,Calculated 292 (280-300); Potassium 3.3 mEq/L (3.5-5.1); Sodium 142 mEq/L (136-145); eGFR For Non-African Americans > 60 (> 60)
[2018-03-06] MEDS: Acetaminophen 325 MG TABLET PO PRN (06:00)
[2018-03-06] MEDS: 0.9 % Sodium Chloride 1,000 ML IVC SCH (06:01)
--- NOTE | 2018-03-06 07:41 | General Surgery Progress Note ---
Date of Encounter: 03/06/18 Time of Encounter: 07:39 - Assessment and Plan (1) Ventral hernia with bowel obstruction Current Visit: Yes Status: Acute POD 1 for Ventral hernia repair, mesh removal with bladder wall invasion and enterotomy due to SBO with incarceration of lower ventral hernia - pathology pending - continue france to decompress bladder as it heals for at least one week - IVF NS 125 - tolerates softs - discontinued zosyn on 10- - continue wound vac - continue supportive care and pain medications as needed - need f/u appt scheduled in office with DIRECTOR OF PARTNER MARKETING in one week with france removal a - needs f/u appt with Dr Huff in wound clinic for 10-15 - discharge today with france and home health for wound vac care (2) Nonhealing surgical wound Current Visit: Yes Status: Chronic see above Qualifiers: Encounter type: initial encounter Qualified Code(s): T81.89XA - Other complications of procedures, not elsewhere classified, initial encounter (3) Sinus tachycardia Current Visit: Yes Status: Acute Hospitalist medicine consulted (4) COPD (chronic obstructive pulmonary disease) Current Visit: Yes Status: Suspected Unclear history of COPD but no increased cough or shortness of breath - duonebs q4 prn Qualifiers: COPD type: emphysema Emphysema type: unspecified Qualified Code(s): J43.9 - Emphysema, unspecified (5) History of DVT (deep vein thrombosis) Current Visit: No Status: Chronic With history of bleeding when anti coagulated - scds and ambulate for prophylaxis Subjective Patient reports: pain is less, tolerating a regular diet, no bowel movement ( earty satiety with feeling of fullnes but no nausea or vomiting ) Objective Vital Signs - Last 8 Hours Temp Pulse Resp BP Pulse Ox 03/06/18 06:54 98.6 F 78 15 148/77 95 03/06/18 02:58 98.3 F 83 14 143/74 94 Intake and Output 03/05/18 03/05/18 03/06/18 15:59 23:59 07:59 Intake Total 1360 / 1360 1240 / 1240 1000 / 1000 Output Total 650 / 650 50 / 50 600 / 600 Balance 710 / 710 1190 / 1190 400 / 400 Intake: IV Fluids 1000 / 1000 1000 / 1000 1000 / 1000 0.9 % Sodium Chloride 1,000 ML 1000 / 1000 1000 / 1000 1000 / 1000 @ 125 mls/hr IVC .Q8H KT Rx#: [id number] Oral 360 / 360 240 / 240 Output: Urine 0 / 0 Catheter 550 / 550 600 / 600 Wound Drainage 100 / 100 50 / 50 Abdomen 100 / 100 50 / 50 Other: Meal Lunch Dinner Percent of Meal Consumed 25% 25% # Bowel Movements 0 Weight 93.1 kg Patient Weight 03/06/18 23:59 Weight 93.1 kg - General physical appearance well developed, well nourished, no distress - Eyes normal ocular movement - ENT normal pinna, normal nares, normal mucosa - Respiratory normal expansion, normal respiratory effort, clear to auscultation - Cardiovascular Cardiovascular exam: Present: RRR, no murmurs/rubs/gallops - Abdomen Abdomen: Present: soft, non tender. Absent: bowel sounds present Additional Comments: out bandage covering wound vac - Incision Incision: Present: approximated. Absent: draining, inflamed - Integumentary no rash, no growths, no abnormal pigmentation - Neurologic CN 2-12 grossly intact, normal coordination, normal sensation - Musculoskeletal normal gait, normal posture - Psychiatric oriented to time, oriented to person, oriented to place, speech is normal, memory intact - Labs 03/06/18 01:04 03/06/18 01:04 Diabetes panel 03/06/18 Range/Units 01:04 Sodium 142 (136-145) mEq/L Potassium 3.3 L (3.5-5.1) mEq/L Chloride 111 H (98-107) mEq/L Carbon Dioxide 24 (23-29) mEq/L BUN 8 (8-23) mg/dL Creatinine 0.64 (0.60-1.20) mg/dL Glucose 93 (70-105) mg/dL Calcium 7.9 L (8.6-10.3) mg/dL Calcium panel 03/06/18 Range/Units 01:04 Calcium 7.9 L (8.6-10.3) mg/dL Pituitary panel 03/06/18 Range/Units 01:04 Sodium 142 (136-145) mEq/L Potassium 3.3 L (3.5-5.1) mEq/L Chloride 111 H (98-107) mEq/L Carbon Dioxide 24 (23-29) mEq/L BUN 8 (8-23) mg/dL Creatinine 0.64 (0.60-1.20) mg/dL Glucose 93 (70-105) mg/dL Calcium 7.9 L (8.6-10.3) mg/dL Adrenal panel 03/06/18 Range/Units 01:04 Sodium 142 (136-145) mEq/L Potassium 3.3 L (3.5-5.1) mEq/L Chloride 111 H (98-107) mEq/L Carbon Dioxide 24 (23-29) mEq/L BUN 8 (8-23) mg/dL Creatinine 0.64 (0.60-1.20) mg/dL Glucose 93 (70-105) mg/dL Calcium 7.9 L (8.6-10.3) mg/dL Consult Discharge Plan - Plan Referrals: Jad Lang MD [Primary Care Provider] -
--- NOTE | 2018-03-06 08:46 | Discharge Summary ---
<Lisbet Richardson - Last Filed: 03/06/18 12:16> - NOTES TO OUTPATIENT PROVIDER Notes to Outpatient Provider: Patient was evaulted for A fib due to unclear hsitory of irregular heart beat but only sinus tach captured. Patient admits to conmpliance for treatment of HTN and COPD and has been instructed to f/u with PCP. Patient was discharge with france that should be removed in one week on 03-13 appt with our surgery clinic. Orders not resulted at time of discharge: Pending orders 03/04/18 16:20 Surgical Pathology [PTH] Routine Date of Encounter: 03/06/18 Time of Encounter: 10:41 - Discharge Diagnosis (1) Ventral hernia with bowel obstruction Priority: Primary Status: Acute (2) Nonhealing surgical wound Priority: Primary Status: Resolved Qualifiers: Encounter type: initial encounter Qualified Code(s): T81.89XA - Other complications of procedures, not elsewhere classified, initial encounter (3) Sinus tachycardia Priority: Secondary Status: Resolved (4) COPD (chronic obstructive pulmonary disease) Priority: Secondary Status: Suspected Qualifiers: COPD type: emphysema Emphysema type: unspecified Qualified Code(s): J43.9 - Emphysema, unspecified General Surgery Exam Initial Vital Signs Temp Pulse Resp BP Pulse Ox 98.1 F 104 18 133/83 96 02/28/18 17:25 02/28/18 17:25 02/28/18 17:25 02/28/18 17:25 02/28/18 17:25 - General physical appearance well developed, well nourished, no distress, obese - Eyes normal ocular movement - ENT normal pinna, normal nares, normal mucosa, no hearing loss - Respiratory normal expansion, normal respiratory effort, clear to percussion - Cardiovascular Cardiovascular exam: Present: RRR, no murmurs/rubs/gallops - Abdomen Abdomen general surgery: Present: bowel sounds present, soft, non tender Hernia: Present: none - Incision Incision: Present: draining. Absent: red, inflamed - Integumentary Integumentary general surgery: Present: warm and dry, no abnormal pigmentation - Neurologic Present: CN 2-12 grossly intact, normal coordination, normal sensation - Musculoskeletal Present: normal gait, normal posture - Psychiatric Psychiatric general surgery: Present: appropriate, oriented to person, oriented to place, speech is normal, memory intact - Hospital Course Hospital course: Ms. Aguayo is a 67 year old female hx non healing wound following ventral hernia repair presented to ER for abdominal pain and vomting on . She was found to have SBO on CT and admitted. On admission found to have irregular rhythm but EKG only showed sinus tach and kept on tele with out another abormal rhythm. Patient could not tolerate NG but could tolerate clears. She was treated medically with Zosyn and eventually consented to surgery. On 03-04 underwent a mesh removal and hernia repair with wound vac . In OR, Dr Huff found the mesh was invading bowel and bladder wall thus entectomy and bowel repair with france placed. On day of discharge patient was tolerating regualr diet. Her wound vac was changed. Arrangements made for home health and follow up with surgery clinic. - Time Spent with Patient Total time spent providing and/or coordinating discharge services: Greater than 30 minutes - Discharge Medications Prescriptions: Albuterol Neb [Proventil Neb] 2.5 mg IH [id number] PRN #1 inhsol PRN Reason: Shortness Of Breath/Wheezing Ondansetron HCl [Zofran] 4 mg PO Q8HR PRN #14 tab PRN Reason: Nausea And Vomiting Docusate [Colace] 100 mg PO BID #30 capsule Ibuprofen 800 mg PO Q8H #42 tablet Meclizine [Antivert] 25 mg PO TID PRN #20 tablet PRN Reason: Dizziness Oxycodone HCl/Acetaminophen [Percocet 5-325 mg Tablet] 1 each PO Q6H 7 Days #28 tablet Home Medications: Albuterol Neb [Proventil Neb] 2.5 mg IH [id number] PRN #1 inhsol 03/06/18 [Rx] Docusate [Colace] 100 mg PO BID #30 capsule 03/06/18 [Rx] Ibuprofen 800 mg PO Q8H #42 tablet 03/06/18 [Rx] Meclizine [Antivert] 25 mg PO TID PRN #20 tablet 03/06/18 [Rx] Ondansetron HCl [Zofran] 4 mg PO Q8HR PRN #14 tab 03/06/18 [Rx] Oxycodone HCl/Acetaminophen [Percocet 5-325 mg Tablet] 1 each PO Q6H 7 Days #28 tablet 03/06/18 [Rx] Allergies/Adverse Reactions: 3 Allergy/AdvReac Type Severity Reaction Status Date / Time ciprofloxacin [From Cipro] Allergy Muscle Pain Verified 11/05/15 14:55 Sulfa (Sulfonamide Allergy Vomiting Verified 05/16/15 11:45 Antibiotics) Date of admission: 03/02/18 14:42 Primary care physician: Jad Lang MD Consults: 03/06/18 08:34 Consult to Fish And Game Warden [CONS] Stat Reason for SW Consult: discharge today with home health for wound vac care a Discharging clinician: Lisbet Richardson Anticipated date of discharge: 03/06/18 Labs on day of discharge: Labs from last 24 hours 03/06/18 03/06/18 03/04/18 01:04 01:04 18:46 WBC 7.9 RBC 3.57 L Hgb 9.4 L Hct 30.5 L MCV 85.4 MCH 26.3 L MCHC 30.8 L RDW 14.1 Plt Count 203 MPV 10.7 Immature Gran % 0.3 Seg Neutrophils % 68.5 Lymphocytes % 21.3 Monocytes % 9.2 Eosinophils % 0.4 Basophils % 0.3 Neutrophils # 5.4 Lymphocytes # 1.7 Monocytes # 0.7 Eosinophils # 0.0 Basophils # 0.0 Sodium 142 Potassium 3.3 L Chloride 111 H Carbon Dioxide 24 BUN 8 Creatinine 0.64 Est GFR ( Amer) > 60 Est GFR (Non-Af Amer) > 60 BUN/Creatinine Ratio 13 Glucose 93 POC Glucose 128 H Calculated Osmolality 292 Calcium 7.9 L - Impressions ITS Impressions Echocardiogram 03/02/18 15:39 Impressions: LVEF 60-65%. Normal LV chamber size, wall thickness and function. Mild left ventricular diastolic dysfunction. Normal right ventricular structure and function. No evidence of pulmonary hypertension. No significant valvular dysfunction. Left Ventricular Wall Motion: Rest Echo Findings All wall segments showed normal motion. Findings: Study Quality * Technically adequate exam. ECG Findings * Normal sinus rhythm. Left Ventricle * LVEF 60-65%. * Normal LV chamber size, wall thickness and function. * Mild left ventricular diastolic dysfunction. Right Ventricle * Normal right ventricular structure and function. Left Atrium * Mildly dilated left atrium. Right Atrium * Normal right atrial size. Aortic Valve * Aortic valve not well visualized. * No aortic regurgitation. * No aortic stenosis. Mitral Valve * Normal mitral valve structure and function. * No mitral regurgitation. * No mitral stenosis. Tricuspid Valve * Normal tricuspid valve structure and function. * Trace tricuspid regurgitation. * No evidence of pulmonary hypertension. Pulmonic Valve * Pulmonic valve is not well visualized. Aorta * Normally sized aortic root. Pericardium * The pericardium appears normal. IVC * The IVC is not well evaluated. Pulmonary Artery * Normal visualized portions of the main pulmonary artery. - Patient Status Disposition: Home Health Service Condition: Fair Functional capacity at discharge: independent ambulation Overall status at discharge: patient is progressing back to baseline - Discharge Instructions Instructions: Open Herniorrhaphy (DC) Follow Up With: Jaime Huff MD [Partnered Physician] - 03/16/18 8:30 am (This appointment will be in the wound care clinic. Thank you) Gracie Patel CNP [Advanced Practice Nurse] - 03/13/18 10:15 am Jad Lang MD [Primary Care Provider] - Additional Instructions: Please call wound clinic at [place] to schedule an appt with Dr Huff in one week for wound vac. Please leave france in place until you follow up with Ms Jorge MARTE in the office next week. Please follow up with your PCP regarding your possible COPD and HTN as your medications may need adjusted. General Surgical Discharge Instructions 1. No pushing, pulling, or lifting greater than 15 lbs for 2-4 weeks (depending upon procedure). 2. You may shower beginning today, but no tub baths, soaking, or swimming for 2 weeks. 3. You may resume driving when you are off narcotics and are safe to react in a car. 4. Take ibuprofen every 8 hours for discomfort. If this does not relieve discomfort, you may take the as needed Percocet. Take narcotics as directed. Do not take more narcotics then directed and do not share your narcotics with any other person. Do not drink alcohol while on narcotics. 5. Take stool softeners (Colace) or a water based laxative (Miralax) while taking narcotics. You may hold for loose stools. 6. Report any fevers greater than 100.5F, increase abdominal discomfort, drainage that looks like pus, increased redness or pain at the surgical site, or any vomiting. 7. Report any pain in the calves, shortness of breath, or rapid heartbeat. 8. Follow-up in the office as directed. 9. If you were prescribed antibiotics, do not stop them without talking to your provider. - Diet and Activity Activity: as per physical therapy Diet: advance to your usual diet <Jaime Huff - Last Filed: 03/10/18 10:37> Date of Encounter: 03/06/18 - Discharge Diagnosis (1) Ventral hernia with bowel obstruction Status: Acute General Surgery Exam Initial Vital Signs Temp Pulse Resp BP Pulse Ox 98.1 F 104 18 133/83 96 02/28/18 17:25 02/28/18 17:25 02/28/18 17:25 02/28/18 17:25 02/28/18 17:25 - Hospital Course Hospital course: Ms. Aguayo is a 67 year old female - Time Spent with Patient Total time spent providing and/or coordinating discharge services: Date of admission: 03/02/18 14:42 Primary care physician: Jad Lang MD Consults: 03/06/18 08:34 Consult to Fish And Game Warden [CONS] Stat Reason for SW Consult: discharge today with home health for wound vac care a - Impressions ITS Impressions Echocardiogram 03/02/18 15:39 Impressions: LVEF 60-65%. Normal LV chamber size, wall thickness and function. Mild left ventricular diastolic dysfunction. Normal right ventricular structure and function. No evidence of pulmonary hypertension. No significant valvular dysfunction. Left Ventricular Wall Motion: Rest Echo Findings All wall segments showed normal motion. Findings: Study Quality * Technically adequate exam. ECG Findings * Normal sinus rhythm. Left Ventricle * LVEF 60-65%. * Normal LV chamber size, wall thickness and function. * Mild left ventricular diastolic dysfunction. Right Ventricle * Normal right ventricular structure and function. Left Atrium * Mildly dilated left atrium. Right Atrium * Normal right atrial size. Aortic Valve * Aortic valve not well visualized. * No aortic regurgitation. * No aortic stenosis. Mitral Valve * Normal mitral valve structure and function. * No mitral regurgitation. * No mitral stenosis. Tricuspid Valve * Normal tricuspid valve structure and function. * Trace tricuspid regurgitation. * No evidence of pulmonary hypertension. Pulmonic Valve * Pulmonic valve is not well visualized. Aorta * Normally sized aortic root. Pericardium * The pericardium appears normal. IVC * The IVC is not well evaluated. Pulmonary Artery * Normal visualized portions of the main pulmonary artery. - Attending Attestation I examined this patient and my medical decision-making was reviewed with the Resident Physician. I agree with the documented findings, disposition and treatment plan as described except to the extent set forth below. The patient is seen and evaluated on morning rounds. She is ready for discharge today. Follow-up in the office. Jaime Huff MD FACS
--- NOTE | 2018-03-06 08:56 | Physician Discharge Referral ---
Addendum entered and electronically signed by Lisbet Richardson 03/06/18 10:36: Per patient request will also add PT to home health referral due to instability of gait and difficulty with knees while walking. Original Note: <Lisbet Richardson - Last Filed: 03/06/18 08:53> Home Health/Hosp Referral Info Transfer to: Home Health (Dr Huff and wound clinic for wound vac care) Attending Provider: Dr Huff Provider in Charge Post Discharge: Other - Diagnosis (1) Ventral hernia with bowel obstruction Priority: Primary Status: Acute (2) Nonhealing surgical wound Priority: Primary Status: Chronic (3) Sinus tachycardia Priority: Secondary Status: Acute (4) COPD (chronic obstructive pulmonary disease) Priority: Secondary Status: Suspected - Respiratory Orders None Smoking Cessation: Smoking cessation has been advised. For more information, call the [place] Tobacco Quit Line at 0-270-JMXL-NOW. - Dressing/Wound Care Site: abdominal ventral hernia and incision Type of Dressing/Treatments w/Frequency: wound vac care - Diet/Nutrition Diet/Nutrition Orders: Regular - Activity Activity Orders: Ambulate - Services Needed Following services are medically necessary services: Nursing, Home Health Aide - Transfer Medications Prescriptions: Albuterol Neb [Proventil Neb] 2.5 mg IH [id number] PRN #1 inhsol PRN Reason: Shortness Of Breath/Wheezing Ondansetron HCl [Zofran] 4 mg PO Q8HR PRN #14 tab PRN Reason: Nausea And Vomiting Docusate [Colace] 100 mg PO BID #30 capsule Ibuprofen 800 mg PO Q8H #42 tablet Meclizine [Antivert] 25 mg PO TID PRN #20 tablet PRN Reason: Dizziness Oxycodone HCl/Acetaminophen [Percocet 5-325 mg Tablet] 1 each PO Q6H 7 Days #28 tablet Home Medications: Albuterol Neb [Proventil Neb] 2.5 mg IH [id number] PRN #1 inhsol 03/06/18 [Rx] Docusate [Colace] 100 mg PO BID #30 capsule 03/06/18 [Rx] Ibuprofen 800 mg PO Q8H #42 tablet 03/06/18 [Rx] Meclizine [Antivert] 25 mg PO TID PRN #20 tablet 03/06/18 [Rx] Ondansetron HCl [Zofran] 4 mg PO Q8HR PRN #14 tab 03/06/18 [Rx] Oxycodone HCl/Acetaminophen [Percocet 5-325 mg Tablet] 1 each PO Q6H 7 Days #28 tablet 03/06/18 [Rx] Allergies/Adverse Reactions: 3 Allergy/AdvReac Type Severity Reaction Status Date / Time ciprofloxacin [From Cipro] Allergy Muscle Pain Verified 11/05/15 14:55 Sulfa (Sulfonamide Allergy Vomiting Verified 05/16/15 11:45 Antibiotics) Certification: Further, I certify that my clinical findings support that this patient is homebound (i.e. absences from home require considerable and taxing effort and are for medical reasons or confucianism services or infrequently or short duration when for other reasons) because: Homebound Reason: Post-surgery restriction and or conditions limit ability to leave home (needs healp with wound vac care) Attestation: My signature below is to certify that this patient is under my care and that I, or nurse practitioner, or a physician's library media assistant working with me, has a face-to -face encounter with this patient. <Jaime Huff - Last Filed: 03/10/18 10:36> - Diagnosis (1) Ventral hernia with bowel obstruction Status: Acute - Respiratory Orders Smoking Cessation: Smoking cessation has been advised. For more information, call the [place] Tobacco Quit Line at 0-447-BKBK-NOW. Certification: Further, I certify that my clinical findings support that this patient is homebound (i.e. absences from home require considerable and taxing effort and are for medical reasons or confucianism services or infrequently or short duration when for other reasons) because: Attestation: My signature below is to certify that this patient is under my care and that I, or nurse practitioner, or a physician's library media assistant working with me, has a face-to -face encounter with this patient. The patient is seen and evaluated and is ready for discharge. Walker is indicated. Jaime Huff MD FACS
--- NOTE | 2018-03-06 09:37 | Internal Med Progress Note ---
<Suzi Clay - Last Filed: 03/06/18 09:47> Hospitalist Progress Note - Encounter Date of Encounter: 03/06/18 Time of Encounter: 08:15 - Subjective Interval History: Ms. Aguayo was seen at bedside this morning. She had no events overnight. Her vitals and labs stayed within normal limits during her stay. She complained of left knee pain and stated she "twisted" her knee when getting up last night. During the exam she was not tender in calfs bilaterally, Татьяна sign was negative. There was no warmth or edema appreciated on either knees. She denied fever, chills, nausea, emesis, cough, shortness of breath, chest pain or abdominal pain. - Exam Vitals: Temp Pulse Resp BP Pulse Ox 98.6 F 78 15 148/77 95 03/06/18 06:54 03/06/18 06:54 03/06/18 06:54 03/06/18 06:54 03/06/18 06:54 Exam: Constitutional: Alert, in no acute distress, comfortable in bed HEENT: Normocephalic, atraumatic, moist mucus membrane Heart: Normal, regular rate and rhythm, no murmurs Lungs: lungs clear and equal bilaterally Abdomen: Soft, nontender, had a bandage on the anterior of abdomen, active bowel sound Extremities: No edema, no clubbing, no tenderness when pressing the calfs bilaterally, no warmth appreciated in bilateral knees, Татьяна sign negative bilaterally Skin: Skin warm and dry, no lesions, no rashes, no jaundice Psych: thought content congruent, appropriate affect Neurological : Alert and oriented x 3 - Assessment and Plan (1) Ventral hernia with bowel obstruction Current Visit: Yes Status: Acute Assessment and Plan: Patient presented to the ER on 02/28/18 due to abdominal pain with nausea and vomiting. She was found to have a distal small bowel obstruction secondary to incarcerated lower ventral hernia on imaging. S/P surgery two days ago. Plan: Management per surgery (2) Hypertension Current Visit: Yes Status: Chronic Assessment and Plan: Patient does report a history of hypertension management but had stopped taking her medication due to side effects. Patient's blood pressure since admission was normal but the past a few days has remained mildly elevated, 150s to 140s systolic. Plan: Continue lopressor Q6H PRN Continue to monitor Will benefit from home antihypertensive by her PCP (3) Asthma Current Visit: Yes Status: Chronic Assessment and Plan: History of asthma. Patient not in exacerbation. Ordered incentive spirometery due to post op to prevent any development of atelectasis. Plan: Albuterol as needed Continue incentive spirometry (4) History of DVT (deep vein thrombosis) Current Visit: No Status: Chronic Assessment and Plan: Patient reports a history of DVT but appeared to have been provoked by prior surgery in the past. Plan: Continue SCDs as she is post op to prevent any bleeding complications (5) Vertigo Current Visit: Yes Status: Chronic Assessment and Plan: Patient reports a history of intermittent dizziness and has been diagnosed with BPPV. She is managed with meclizine as needed as an outpatient. Plan: Patient remained asymptomatic but took her home meclizine as needed (6) Sinus tachycardia Current Visit: Yes Status: Resolved Assessment and Plan: Resolved. Was consulted due to episode of irregular rate. Her heart rate this morning was 78 and blood pressure was 148/77. EKG on 03/01/18 showed sinus rhythm. Plan: Continue to monitor patient on telemetry TSH within normal limits and Echocardiogram showed EF of 60 to 65% with mild LV diastolic dysfunction 5 mg lopressor Q6 PRN (7) DVT prophylaxis Current Visit: Yes Status: Acute Assessment and Plan: SCDs due to recent abdominal surgery and risk of bleeding - Time Spent with Patient Total time spent is greater than 50% in coordination of care (as documented) at patient's floor/unit and/or counseling patient: less than 15 minutes Plan of Care Discussed with: patient Internal Medicine: Result - Labs CBC & Chem 7: 03/06/18 01:04 03/06/18 01:04 Labs: Short CBC 03/06/18 Range/Units 01:04 WBC 7.9 (4.3-11.1) K/mcL Hgb 9.4 L (11.5-15.4) g/dL Hct 30.5 L (35.3-44.9) % Plt Count 203 (140-400) K/mcL Neutrophils # 5.4 (1.6-8.9) K/mcL BMP 03/06/18 01:04 Sodium 142 Potassium 3.3 L Chloride 111 H Carbon Dioxide 24 BUN 8 Creatinine 0.64 Glucose 93 Calcium 7.9 L - ABG Interpretation ABG results: PT/INR, D-dimer PT 12.1 Seconds (9.4-12.1) 03/01/18 08:37 Consult Discharge Plan - Plan Additional Instructions: Please call wound clinic at [place] to schedule an appt with Dr Huff in one week for wound vac. Please leave france in place until you follow up with Ms Jorge MARTE in the office next week. Please follow up with your PCP regarding your possible COPD and HTN as your medications may need adjusted. General Surgical Discharge Instructions 1. No pushing, pulling, or lifting greater than 15 lbs for 2-4 weeks (depending upon procedure). 2. You may shower beginning today, but no tub baths, soaking, or swimming for 2 weeks. 3. You may resume driving when you are off narcotics and are safe to react in a car. 4. Take ibuprofen every 8 hours for discomfort. If this does not relieve discomfort, you may take the as needed Percocet. Take narcotics as directed. Do not take more narcotics then directed and do not share your narcotics with any other person. Do not drink alcohol while on narcotics. 5. Take stool softeners (Colace) or a water based laxative (Miralax) while taking narcotics. You may hold for loose stools. 6. Report any fevers greater than 100.5F, increase abdominal discomfort, drainage that looks like pus, increased redness or pain at the surgical site, or any vomiting. 7. Report any pain in the calves, shortness of breath, or rapid heartbeat. 8. Follow-up in the office as directed. 9. If you were prescribed antibiotics, do not stop them without talking to your provider. Referrals: Jaime Huff MD [Partnered Physician] - 03/16/18 8:30 am (This appointment will be in the wound care clinic. Thank you) Gracie Patel CNP [Advanced Practice Nurse] - 03/13/18 10:15 am Jad Lang MD [Primary Care Provider] - Prescriptions: Albuterol Neb [Proventil Neb] 2.5 mg IH [id number] PRN #1 inhsol PRN Reason: Shortness Of Breath/Wheezing Ondansetron HCl [Zofran] 4 mg PO Q8HR PRN #14 tab PRN Reason: Nausea And Vomiting Docusate [Colace] 100 mg PO BID #30 capsule Ibuprofen 800 mg PO Q8H #42 tablet Meclizine [Antivert] 25 mg PO TID PRN #20 tablet PRN Reason: Dizziness Oxycodone HCl/Acetaminophen [Percocet 5-325 mg Tablet] 1 each PO Q6H 7 Days #28 tablet <Pam Pennington - Last Filed: 03/06/18 15:00> Hospitalist Progress Note - Encounter Date of Encounter: 03/06/18 - Exam Vitals: Temp Pulse Resp BP Pulse Ox 98.3 F 90 14 135/75 94 03/06/18 14:15 03/06/18 14:15 03/06/18 14:15 03/06/18 14:15 03/06/18 14:15 - Assessment and Plan (1) Ventral hernia with bowel obstruction Current Visit: Yes Status: Acute (2) Hypertension Current Visit: Yes Status: Chronic (3) Asthma Current Visit: Yes Status: Chronic (4) History of DVT (deep vein thrombosis) Current Visit: No Status: Chronic (5) Vertigo Current Visit: Yes Status: Chronic (6) Sinus tachycardia Current Visit: Yes Status: Resolved (7) DVT prophylaxis Current Visit: Yes Status: Acute - Time Spent with Patient Total time spent is greater than 50% in coordination of care (as documented) at patient's floor/unit and/or counseling patient: Internal Medicine: Result - Labs CBC & Chem 7: 03/06/18 01:04 03/06/18 01:04 Labs: Short CBC 03/06/18 Range/Units 01:04 WBC 7.9 (4.3-11.1) K/mcL Hgb 9.4 L (11.5-15.4) g/dL Hct 30.5 L (35.3-44.9) % Plt Count 203 (140-400) K/mcL Neutrophils # 5.4 (1.6-8.9) K/mcL BMP 03/06/18 01:04 Sodium 142 Potassium 3.3 L Chloride 111 H Carbon Dioxide 24 BUN 8 Creatinine 0.64 Glucose 93 Calcium 7.9 L - ABG Interpretation ABG results: PT/INR, D-dimer PT 12.1 Seconds (9.4-12.1) 03/01/18 08:37 - Attending Attestation I examined this patient and my medical decision-making was reviewed with the Resident Physician Dr Clay. I agree with the documented findings, disposition and treatment plan as described except to the extent set forth below/addl details below. Ms Aguayo was admitted by surgery team for SBO with incarceration of ventral hernia with hx mesh repair of ventral hernia. Hospitalist consult for possible paroxysmal afib and hyperglycemia Awake, feeling better, no abd pain, no flatus or bm. Denies sob, cough, chest pain or palpitations gen- alert, awake,appears stated age cv- reg rate and rhythm, normal s1,s2, no murmurs appreciated, radial pulse 2+ and regular lungs- ctabl, no wheezing, rhonchi or crackles, normal resp effort on room air abd- soft, non tender, no guarding, decreased bs, dressing c/d/i neuro- AAOx3 gu- france with clear yellow urine in bag Questionable episode afib, appears to have been sinus tachycardia- remains NSR , cont on tele in pre/post op setting echo was prefmormed this admit, cont to monitor K+ and Mag while inpt Hypokalemia, replete to goal >4 prn Hyperglycemia, with bs now at goal, A1C 5.7, no further intervention, cont to monitor with accu checks, bs at goal for admission, fu with pcp HTN hx but not on home meds- post op BPs have been mildly elevated post op- prn pain control and she should fu with pcp for further eval and management of htn as needed Ventral Hernia with Bowel Obstruction, non healing surgical wound- management as per surgery, OR 03/04 for mesh removal and hernia repair with wound vac, abx as per surgery, cont france cath at dc due to bladder involvement as per surg, post of vte ppx as per surgery <Suzi Clay - Last Filed: 03/06/18 09:47> (2) Hypertension Qualifiers: Hypertension type: essential hypertension Qualified Code(s): I10 - Essential (primary) hypertension (3) Asthma Qualifiers: Asthma severity: mild Asthma persistence: intermittent Asthma complication type: uncomplicated Qualified Code(s): J45.20 - Mild intermittent asthma, uncomplicated <Pam Pennington - Last Filed: 03/06/18 15:00> (2) Hypertension Qualifiers: Hypertension type: essential hypertension Qualified Code(s): I10 - Essential (primary) hypertension (3) Asthma Qualifiers: Asthma severity: mild Asthma persistence: intermittent Asthma complication type: uncomplicated Qualified Code(s): J45.20 - Mild intermittent asthma, uncomplicated
[2018-03-06] MEDS ORDERED: Magnesium Oxide 400 MG TABLET PO SCH (11:00)
[2018-03-06] MEDS: OXYCODONE Oral CONC 10 MG/0.5 ML ORAL.SYG SL PRN (11:01)
[2018-03-06 14:19] VITALS: BP 135/75
== END 2018-03-06 18:09 | disposition home health service (06) | DRG 908 ==
LOC: EMEROOARM 17:23 → 3ANU 17:23 → SUATTDRO 03-02 14:42
PROVIDERS: ADMIT Surgery; ATTEND Surgery

== ENCOUNTER 2020-12-28 03:35 | Inpatient (IN) ==
[2020-12-28] MEDS ORDERED: Naloxone 0.4 MG/ML INJ IVP PRN ×2 (04:57→11:32)
[2020-12-28] MEDS ORDERED: Ondansetron 4 MG/2 ML VIAL IVP PRN ×3 (04:57→11:32)
[2020-12-28] MEDS ORDERED: 0.9 % Sodium Chloride 1,000 ML IVC SCH ×2 (05:00→11:32)
[2020-12-28 05:42] LABS: Hematocrit 36.6 % (35.3-44.9); Hemoglobin 11.2 g/dL (11.5-15.4); Mean Corpuscular HGB Conc 30.6 g/dL (31.6-35.5); Mean Corpuscular Hemoglobin 24.8 pg (28.0-33.3); Mean Corpuscular Volume 81.2 fL (83.0-100.0); Mean Platelet Volume 10.4 fL (9.4-12.4); Platelet Count 244 K/mcL (140-400); Red Blood Count 4.51 M/mcL (3.82-4.97); Red Cell Distribution Width 16.7 % (11.5-14.5); White Blood Count 8.4 K/mcL (4.3-11.1)
[2020-12-28 05:50] LABS: Prothrombin Time 11.7 Seconds (9.4-12.1)
[2020-12-28 05:52] LABS: Activated Partial Thrombo Time 26.9 Seconds (26.0-36.0)
[2020-12-28 06:00] LABS: BUN/Creatinine Ratio 20 (6-26); Blood Urea Nitrogen 16 mg/dL (8-23); Calcium 8.7 mg/dL (8.6-10.3); Carbon Dioxide 25 mEq/L (23-29); Chloride 108 mEq/L (98-107); Glucose 117 mg/dL (70-105); Osmolality,Calculated 292 (280-300); Sodium 140 mEq/L (136-145); eGFR For African Americans > 60 (> 60); eGFR For Non-African Americans > 60 (> 60)
[2020-12-28] MEDS ORDERED: *HR* Propofol 200 MG/20 ML VIAL IVP ONE (07:12)
[2020-12-28] MEDS ORDERED: Ondansetron 4 MG/2 ML VIAL ONE (07:12)
[2020-12-28] MEDS ORDERED: Lidocaine -MPF 2% 2 ML VIAL ONE (07:12)
[2020-12-28] MEDS ORDERED: *HR* FentaNYL (PF) 100 MCG/2 ML VIAL ONE (07:12)
[2020-12-28] MEDS ORDERED: *HR* Rocuronium Bromide 50 MG/5 ML VIAL ONE (07:12)
[2020-12-28] MEDS ORDERED: Lidocaine -MPF 4% 5 ML AMPUL ONE (07:13)
[2020-12-28] MEDS ORDERED: CefOXitin 1,000 MG VIAL ONE (07:59)
[2020-12-28] MEDS ORDERED: *HR* Succinylcholine 200 MG/10 ML VIAL IVP ONE (08:43)
[2020-12-28] MEDS ORDERED: Metoclopramide 10 MG/2 ML VIAL ONE (08:44)
[2020-12-28] MEDS ORDERED: CefOXitin 2,000 MG VIAL ONE (08:54)
[2020-12-28] MEDS ORDERED: cefOXitin 2,000 MG in Water for inj. (sterile) 20 ML IVP ONE (08:56)
[2020-12-28] MEDS ORDERED: Acetaminophen IV 1,000 MG/100 ML BAG IVPB ONE ×3 (09:36→21:22)
[2020-12-28] MEDS ORDERED: *HR* HYDROMORPHONE 2 MG/ML VIAL ONE (09:57)
[2020-12-28] MEDS ORDERED: Albumin Human 5% 25.0 GM/500 ML IV.SOLN ONE (10:00)
[2020-12-28] MEDS ORDERED: *HR* Labetalol 20 MG/4 ML SYRINGE IVP ONE (10:36)
[2020-12-28] MEDS ORDERED: Sugammadex Sodium 200 MG/2 ML VIAL IV ONE (10:40)
[2020-12-28] MEDS ORDERED: *HR* Metoprolol 5 MG/5 ML VIAL IVP PRN (11:32)
[2020-12-28] MEDS ORDERED: Morphine Sulfate 2 MG/ML SYRINGE IVP PRN (11:32)
[2020-12-28] MEDS: CeFAZolin 2 GM/120 ML BAG IVPB SCH ×2 (16:05→23:27)
[2020-12-28] MEDS: *HR* Heparin 5,000 UNIT/ML VIAL SQ SCH ×2 (16:06→20:59)
[2020-12-29] MEDS: *HR* Heparin 5,000 UNIT/ML VIAL SQ SCH ×3 (05:11→21:14)
[2020-12-29] MEDS ORDERED: Acetaminophen IV 1,000 MG/100 ML BAG IVPB ONE (08:15)
[2020-12-29 09:46] LABS: BUN/Creatinine Ratio 15 (6-26); Blood Urea Nitrogen 11 mg/dL (8-23); Calcium 8.4 mg/dL (8.6-10.3); Carbon Dioxide 26 mEq/L (23-29); Chloride 109 mEq/L (98-107); Glucose 99 mg/dL (70-105); Osmolality,Calculated 293 (280-300); Potassium 3.6 mEq/L (3.5-5.1); Sodium 142 mEq/L (136-145); eGFR For African Americans > 60 (> 60); eGFR For Non-African Americans > 60 (> 60)
[2020-12-29] MEDS: Acetaminophen IV 1,000 MG/100 ML BAG IVPB SCH (17:49)
[2020-12-30] MEDS: Acetaminophen IV 1,000 MG/100 ML BAG IVPB SCH ×4 (00:40→16:44)
[2020-12-30 03:23] LABS: Basophils % 0.2 %; Eosinophils % 0.2 %; Hematocrit 32.8 % (35.3-44.9); Hemoglobin 10.2 g/dL (11.5-15.4); Immature Granulocytes % 0.6 % (0-4); Lymphocytes # 1.7 K/mcL (0.6-4.6); Lymphocytes % 16.2 %; Mean Corpuscular HGB Conc 31.1 g/dL (31.6-35.5); Mean Corpuscular Hemoglobin 25.6 pg (28.0-33.3); Mean Corpuscular Volume 82.4 fL (83.0-100.0); Mean Platelet Volume 10.5 fL (9.4-12.4); Monocytes # 1.1 K/mcL (0.0-1.3); Monocytes % 10.3 %; Neutrophils # 7.6 K/mcL (1.6-8.9); Platelet Count 201 K/mcL (140-400); Red Blood Count 3.98 M/mcL (3.82-4.97); Red Cell Distribution Width 16.9 % (11.5-14.5); Segmented Neutrophils % 72.5 %; White Blood Count 10.5 K/mcL (4.3-11.1)
[2020-12-30 03:37] LABS: BUN/Creatinine Ratio 20 (6-26); Blood Urea Nitrogen 12 mg/dL (8-23); Calcium 8.3 mg/dL (8.6-10.3); Carbon Dioxide 24 mEq/L (23-29); Chloride 107 mEq/L (98-107); Glucose 85 mg/dL (70-105); Osmolality,Calculated 289 (280-300); Potassium 3.5 mEq/L (3.5-5.1); Sodium 140 mEq/L (136-145); eGFR For African Americans > 60 (> 60); eGFR For Non-African Americans > 60 (> 60)
[2020-12-30] MEDS: *HR* Heparin 5,000 UNIT/ML VIAL SQ SCH ×3 (06:34→22:25)
[2020-12-31] MEDS: Acetaminophen IV 1,000 MG/100 ML BAG IVPB SCH ×2 (00:03→05:28)
[2020-12-31 03:39] LABS: Hemoglobin 9.9 g/dL (11.5-15.4)
[2020-12-31] MEDS: *HR* Heparin 5,000 UNIT/ML VIAL SQ SCH (05:28)
[2020-12-31 11:42] VITALS: BP 144/81; PULSE 87; TEMP 98; O2SAT 95
== END 2020-12-31 13:18 | disposition home or self-care (01) | DRG 336 ==
LOC: 3ANU → SUATTDRO 20:10
PROVIDERS: ADMIT Internal Medicine; ATTEND Family Medicine